=== PATIENT | male | born 1950 | race Caucasian/White ===

== ENCOUNTER 2019-02-21 13:59 | Emergency (ER) | payer OTHER ==
[2019-02-21 14:29] VITALS: BP 147/85
--- NOTE | 2019-02-21 15:17 | EDM.PDOC ---
ED HPI GENERAL MEDICAL PROBLEM - General Chief Complaint: Neurological Problem Stated Complaint: DIZZY X 2 DAYS Time Seen by Provider: 02/21/19 14:20 Source of Information: Reports: Patient History Limitations: Reports: No Limitations - History of Present Illness INITIAL COMMENTS - FREE TEXT/NARRATIVE: 68 y/o male presents to ER with cc dizziness. He states he started feeling dizzy 2 weeks ago. Over the past 2 days his symptoms are worse. He states he feels off balance. It is worse when he moves his head. He denies neck pain, headache, chills, fever, nausea or vomiting. He states when he walks he feels wobbly. He reports he wears bilateral hearing aids and has problems with his right ear consistently draining. He reports having ear surgery 10 years ago. Onset Date: 02/19/19 Onset Time: 09:00 Duration: Intermittent, Waxing/Waning Location: Reports: Generalized. Denies: Radiates to Severity: Mild Improves with: Reports: None Worsens with: Reports: Movement Associated Symptoms: Reports: Other (dizziness). Denies: Fever/Chills, Headaches, Nausea/Vomiting Headache Pain Score (Numeric/FACES): 3 - Related Data Allergies Allergy/AdvReac Type Severity Reaction Status Date / Time codeine Allergy Itching Verified 02/21/19 14:25 Home Meds: Home Meds Levothyroxine [Synthroid] 0 mcg PO DAILY 10/10/15 [History] PARoxetine [Paxil] 40 mg PO DAILY 10/10/15 [History] lamoTRIgine [Lamotrigine] 200 mg PO DAILY 10/10/15 [History] levETIRAcetam [Levetiracetam] 500 mg PO DAILY 10/10/15 [History] traZODone 150 mg PO BEDTIME 10/10/15 [History] Past Medical History HEENT History: Reports: Hard of Hearing Other Musculoskeletal History: herniated disc Neurological History: Reports: Headaches, Chronic, Seizure Psychiatric History: Reports: Anxiety, Depression, PTSD Endocrine/Metabolic History: Reports: Hypothyroidism - Past Surgical History HEENT Surgical History: Reports: Myringotomy w Tube(s), Other (See Below) Other HEENT Surgeries/Procedures: ear surgeries Musculoskeletal Surgical History: Reports: Arthroscopic Procedure Social & Family History - Tobacco Use Smoking Status *Q: Current Every Day Smoker Years of Tobacco use: 53 Packs/Tins Daily: 1 - Caffeine Use Caffeine Use: Reports: Coffee - Recreational Drug Use Recreational Drug Use: No - Living Situation & Occupation Living situation: Reports: Occupation: Unemployed ED ROS GENERAL - Review of Systems Review Of Systems: See Below Constitutional: Denies: Fever, Chills HEENT: Reports: Ear Discharge (right ear, bilateral hearing aids), Hearing Loss , Vertigo. Denies: Ear Pain Respiratory: Denies: Shortness of Breath Cardiovascular: Denies: Chest Pain Endocrine: Reports: No Symptoms, Polyuria : Reports: No Symptoms Musculoskeletal: Reports: No Symptoms Skin: Reports: No Symptoms Neurological: Reports: Dizziness Psychiatric: Reports: No Symptoms Hematologic/Lymphatic: Reports: No Symptoms Immunologic: Reports: No Symptoms ED EXAM, NEURO - Physical Exam Exam: See Below Exam Limited By: No Limitations General Appearance: Alert, WD/WN, No Apparent Distress Ears: Normal External Exam (right ear was impacted with 3 inch piece of paper towel, a end of a q tip and a 1.5 cm x 1.5 cm crusty brown matter, TM intact.), Normal TMs, Hearing Loss Throat/Mouth: Normal Inspection Head Exam: Atraumatic, Normocephalic Neck: Normal Inspection, Supple, Non-Tender Respiratory/Chest: No Respiratory Distress, Lungs Clear, Normal Breath Sounds, No Accessory Muscle Use, Chest Non-Tender Cardiovascular: Normal Peripheral Pulses, Regular Rate, Rhythm, No Edema, No Gallop, No JVD, No Murmur, No Rub Neurological: Alert, Normal Mood/Affect, Normal Dorsiflexion, CN II-XII Intact, Normal Plantar Flexion, Normal Gait, Normal Reflexes, No Motor/Sensory Deficits , Oriented x 3 Extremities: Normal Inspection, Normal Range of Motion, Non-Tender, No Pedal Edema, Normal Capillary Refill Psychiatric: Normal Affect, Normal Mood Skin Exam: Warm, Dry, Intact, Normal Color, No Rash Course - Vital Signs Last Recorded V/S: Last Vital Signs Temp 98.2 F 02/21/19 14:23 Pulse 64 02/21/19 14:23 Resp 16 02/21/19 14:23 BP 147/85 H 02/21/19 14:23 Pulse Ox 98 02/21/19 14:23 - Re-Assessments/Exams Free Text/Narrative Re-Assessment/Exam: 02/21/19 15:20 68 y/o male presented to ER with cc dizziness for the past 2 weeks and worse the past 2 days. His examination revealed multiple foreign bodies in right ear, including paper towel and end of a q-tip. I did remove this debris and moderate crusty mater. He immediately felt relief and his dizziness resolved almost completely. He is ambulating with steady gait. He states he feels better and is ready to go home. I don't feel he needs further work up at this time. I will discharge home with instructions to follow up with his PCP. Instructed to return to the ER for any new or acute worsening symptoms. Patient verbalized understanding and is comfortable with plan for discharge. He is stable at time of discharge. Departure - Departure Time of Disposition: 15:23 Disposition: Home, Self-Care 01 Condition: Good Clinical Impression: Dizziness, Ear build-up - Discharge Information Instructions: Earwax Buildup, Adult, Vertigo, [id number], Dizziness, Easy-to- Read Referrals: Brianna Granados MD [Primary Care Provider] - Additional Instructions: Your have been diagnosis with dizziness. I feel this may be due to the debris that was impacted in your right ear. I recommend you follow up with your PCP. Do not pack ear or use q-tips. Return to the ER for any new or acute worsening symptoms.
== END 2019-02-21 15:38 | disposition home or self-care (01) ==
LOC: JD.ED 13:59
DX: R42 Dizziness and giddiness (principal); F17.210 Nicotine dependence, cigarettes, uncomplicated; Z88.5 Allergy status to narcotic agent; Z79.899 Other long term (current) drug therapy
CPT/HCPCS: 99282; 99283

== ENCOUNTER 2019-02-23 15:08 | Emergency (ER) | payer OTHER ==
[2019-02-23 15:26] VITALS: BP 123/77
[2019-02-23] MEDS ORDERED: Meclizine 12.5 MG Tab PO ONE ×2 (16:46→17:46)
--- NOTE | 2019-02-23 17:00 | EDM.PDOC ---
ED HPI GENERAL MEDICAL PROBLEM - General Chief Complaint: ENT Problem Stated Complaint: STILL DIZZY AND HEARING LOSS IN RT EAR Time Seen by Provider: 02/23/19 16:13 Source of Information: Reports: Patient, RN Notes Reviewed History Limitations: Reports: No Limitations - History of Present Illness INITIAL COMMENTS - FREE TEXT/NARRATIVE: Patient is a 68-year-old male who presents to the ED for the evaluation of increasing dizziness and right sided hearing loss. He states that he has a history of hearing loss with hearing aids, however this has worsened. He states he cannot hear out of the right side at all. He was seen here on February 21 and did have his ear cleaned out at that time he was found to have a bit of a Q-tip, some paper towel and other cerumen like impaction. The patient states that he does have chronic problems with his right ear where it drains normally. He does note a previous ENT surgery to his right ear many years ago, he states at this time the ENT told him he should have his ear cleaned out at least every 6 months. He is not having any pain in his ear or into his forehead or into the back of his head at all. He states he is mainly dizzy, and feels as if he can't get his balance. He states that he cannot walk straight and he walks like a "drunken soldier". He does not relate this to be positional however he states when he went to take his pants off last night he went head over tea kettle into the coffee table. He further denies any headache at this time, he states he had a very mild headache after he had his ear cleaned out to begin with but this has since resolved. - Related Data Allergies Allergy/AdvReac Type Severity Reaction Status Date / Time codeine Allergy Itching Verified 02/23/19 15:26 Home Meds: Home Meds Levothyroxine [Synthroid] 0 mcg PO DAILY 10/10/15 [History] PARoxetine [Paxil] 40 mg PO DAILY 10/10/15 [History] lamoTRIgine [Lamotrigine] 200 mg PO DAILY 10/10/15 [History] levETIRAcetam [Levetiracetam] 500 mg PO DAILY 10/10/15 [History] traZODone 150 mg PO BEDTIME 10/10/15 [History] Amoxicillin/Potassium Clav [Augmentin 500-125 Tablet] 1 each PO BID #16 tablet 02/23/19 [Rx] Hydrocort/Neomycin/Polymyxin B [Cmejatyq-Ukyynrbkb-NZ Otic Susp] 10 ml EARRT QID #1 bottle 02/23/19 [Rx] Meclizine [Antivert] 25 mg PO TID #15 tab 02/23/19 [Rx] Past Medical History HEENT History: Reports: Hard of Hearing Other Musculoskeletal History: herniated disc Neurological History: Reports: Headaches, Chronic, Seizure Psychiatric History: Reports: Anxiety, Depression, PTSD Endocrine/Metabolic History: Reports: Hypothyroidism - Past Surgical History HEENT Surgical History: Reports: Myringotomy w Tube(s), Other (See Below) Other HEENT Surgeries/Procedures: ear surgeries Musculoskeletal Surgical History: Reports: Arthroscopic Procedure Social & Family History - Tobacco Use Smoking Status *Q: Current Every Day Smoker Years of Tobacco use: 52 Packs/Tins Daily: 1 - Caffeine Use Caffeine Use: Reports: Coffee, Soda - Recreational Drug Use Recreational Drug Use: Yes Drug Use in Last 12 Months: Yes Recreational Drug Type: Reports: Marijuana/Hashish Recreational Drug Use Frequency: Socially - Living Situation & Occupation Living situation: Reports: Occupation: Unemployed ED ROS GENERAL - Review of Systems Review Of Systems: See Below Constitutional: Denies: Fever, Chills HEENT: Reports: Ear Discharge (Right sided), Hearing Loss (Rigth sided), Vertigo. Denies: Eye Pain, Vision Change Respiratory: Reports: No Symptoms Cardiovascular: Reports: No Symptoms Endocrine: Reports: No Symptoms GI/Abdominal: Reports: No Symptoms : Reports: No Symptoms Musculoskeletal: Reports: No Symptoms Skin: Reports: No Symptoms Neurological: Reports: Dizziness, Difficulty Walking. Denies: Confusion, Headache, Numbness, Syncope, Tingling Psychiatric: Reports: No Symptoms Hematologic/Lymphatic: Reports: No Symptoms Immunologic: Reports: No Symptoms ED EXAM, DIZZINESS - Physical Exam Exam: See Below Exam Limited By: No Limitations General Appearance: Alert, WD/WN, No Apparent Distress Eye Exam: Left Eye: Nystagmus (3 tics of bilateral nystagmus), Bilateral Eye: EOMI, Normal Inspection, PERRL Ears: Canal Discharge (right sided, scant amount of blood mixed with whitish discharge noted to 5 o-clock position of EAC, There was some dark brown cerumen impaction at roughly 9 o-clock of EAC, this did obscure my view of the TM ), TM Obscured by Cerumen (Right sided) Nose: Normal Inspection Throat/Mouth: Normal Inspection, No Airway Compromise Head Exam: Atraumatic, Normocephalic Neck: Normal Inspection, Supple, Non-Tender, Full Range of Motion Respiratory/Chest: No Respiratory Distress, Lungs Clear, Normal Breath Sounds, No Accessory Muscle Use, Chest Non-Tender Cardiovascular: Normal Peripheral Pulses, Regular Rate, Rhythm, No Murmur Neurological: Alert, Normal Mood/Affect, Normal Dorsiflexion, Normal Plantar Flexion, Normal Reflexes, No Motor/Sensory Deficits, Oriented x 3, Difficulty Walking (heel to toe gait is impaired and he could only make it 1.5 steps without being completely off balance.), Other (he does have marked hearing loss on the right side, he states this is worse than normal for him.). No: Abnormal Finger to Nose (finger to nose was normal) Extremities: Normal Inspection, Normal Capillary Refill Psychiatric: Normal Affect, Normal Mood Skin Exam: Warm, Dry, Intact, Normal Color, No Rash Course - Vital Signs Last Recorded V/S: Last Vital Signs Temp 98.4 F 02/23/19 15:20 Pulse 70 02/23/19 15:20 Resp 18 02/23/19 15:20 BP 123/77 02/23/19 15:20 Pulse Ox 98 02/23/19 15:20 - Orders/Labs/Meds Meds: Medications Discontinued Medications Generic Name Dose Route Start Last Admin Trade Name Freq PRN Reason Stop Dose Admin Meclizine HCl 12.5 mg 02/23/19 16:46 02/23/19 16:52 Antivert PO 02/23/19 16:47 12.5 mg ONETIME ONE Administration - Re-Assessments/Exams Free Text/Narrative Re-Assessment/Exam: 02/23/19 17:03 Patient presents to the ED for the evaluation of right-sided hearing loss and dizziness. He did have his ear cleaned out and this did produce multiple foreign bodies on 21 February, he did initially feel better but today he has had increased hearing loss and increased dizziness. He does seem to elicit some vertigo-like symptoms at this time. I did order 12.5 mg of meclizine to be given in the ED, I will recommend that he takes meclizine 3 times daily for the next few days, I will provide a prescription for Augmentin in the chance that he may have a inner ear infection from the cleaning of the impaction. I will also provide some antibiotic eardrops to clean up his ear canal at this time. He needs to have a follow up with an industrial psychology professor as well. Departure - Departure Time of Disposition: 17:51 Disposition: Home, Self-Care 01 Condition: Fair Clinical Impression: Dizziness Otitis externa Qualifiers: Otitis externa type: unspecified type Chronicity: acute Laterality: right Qualified Code(s): H60.501 - Unspecified acute noninfective otitis externa, right ear - Discharge Information *PRESCRIPTION DRUG MONITORING PROGRAM REVIEWED*: No *COPY OF PRESCRIPTION DRUG MONITORING REPORT IN PATIENT ESTELITA: No Prescriptions: Amoxicillin/Potassium Clav [Augmentin 500-125 Tablet] 1 each PO BID #16 tablet Hydrocort/Neomycin/Polymyxin B [Skomvnan-Nihqdgenc-TC Otic Susp] 10 ml EARRT QID #1 bottle Instructions: Ear Drops, Adult, Ukry-ng-Hnpt, Vertigo, [id number] Referrals: Brianna Granados MD [Primary Care Provider] - Forms: ED Department Discharge Additional Instructions: You have been evaluated in the ED today for your right sided hearing loss and dizziness. Recommend that you have a follow-up with an industrial psychology professor to further delineate where the hearing loss is coming from. You have been prescribed an antibiotic, Augmentin, please take one tab 2 times daily for 8 days. Please use the eardrops, 2 drops in the right ear canal 4 times daily for 5 days. Please take the [id number] medication meclizine, it may also marketed as Bonine, 25 mg every 8 hours for the next 5 days dizziness symptoms, and then you may take the meclizine as needed for further dizziness like symptoms. These medications have been electronically prescribed to the [facility] located [facility] [employer] [facility]. The Augmentin can provide diarrhea-like symptoms, recommend that you take a probiotic when taking this medicine. Please return to the ED if her symptoms change or worsen.
== END 2019-02-23 18:01 | disposition home or self-care (01) ==
LOC: JD.ED 15:08
DX: R42 Dizziness and giddiness (principal); H60.501 Unspecified acute noninfective otitis externa, right ear; E03.9 Hypothyroidism, unspecified; F17.210 Nicotine dependence, cigarettes, uncomplicated; Z88.5 Allergy status to narcotic agent
CPT/HCPCS: 99283; A9270

== ENCOUNTER 2019-08-20 13:41 | Emergency (ER) | payer OTHER ==
[2019-08-20 13:51] VITALS: BP 181/107; PULSE 67
[2019-08-20] MEDS ORDERED: Sodium Chloride 0.9% 10 ML Syringe FLUSH PRN ×2 (14:04→14:13)
[2019-08-20] MEDS ORDERED: Ondansetron 4 MG/2 ML SDV IVPUSH ONE (14:04)
[2019-08-20] MEDS ORDERED: Iopamidol 755 Mg/ML 100 ML Bottle IVPUSH ONE (14:13)
[2019-08-20] MEDS ORDERED: Sodium Chloride 0.9% 1,000 ML IV SCH (14:15)
[2019-08-20] MEDS ORDERED: Sodium Chloride 0.9% 100 ML IV SCH (14:15)
--- NOTE | 2019-08-20 14:59 | EDM.PDOC ---
ED HPI GENERAL MEDICAL PROBLEM - General Chief Complaint: Neuro Symptoms/Deficits Stated Complaint: DIZZINESS Time Seen by Provider: 08/20/19 13:53 Source of Information: Reports: Patient History Limitations: Reports: No Limitations - History of Present Illness INITIAL COMMENTS - FREE TEXT/NARRATIVE: The patient presents with dizziness. This started this morning when he woke up. He is off balance. He says he has no headache, ear pain or ringing in the ears. He does have a hearing aid in the right ear and a metal plate behind the ear for another hearing aid that he does not use any more. He has no nausea, vomiting, fever, chills, cough, chest pain, shortness of breath, abdominal pain , numbness or weakness. He had something similar to this happen earlier in the year but it is much worse today. Onset: Gradual Duration: Hour(s): Severity: Moderate Improves with: Reports: Immobilization Worsens with: Reports: Movement Associated Symptoms: Reports: No Other Symptoms - Related Data Allergies Allergy/AdvReac Type Severity Reaction Status Date / Time codeine Allergy Itching Verified 08/20/19 13:51 Home Meds: Home Meds Levothyroxine [Synthroid] 0 mcg PO DAILY 10/10/15 [History] PARoxetine [Paxil] 40 mg PO DAILY 10/10/15 [History] lamoTRIgine [Lamotrigine] 200 mg PO BID 10/10/15 [History] levETIRAcetam [Levetiracetam] 500 mg PO BID 10/10/15 [History] traZODone 100 mg PO BEDTIME 10/10/15 [History] Prazosin [Minpress] 1 mg PO BEDTIME 08/20/19 [History] Past Medical History HEENT History: Reports: Hard of Hearing Cardiovascular History: Reports: None Respiratory History: Reports: None Gastrointestinal History: Reports: None Genitourinary History: Reports: None Other Musculoskeletal History: herniated disc Neurological History: Reports: Headaches, Chronic, Seizure Psychiatric History: Reports: Anxiety, Depression, PTSD Endocrine/Metabolic History: Reports: Hypothyroidism Hematologic History: Reports: None Immunologic History: Reports: None Oncologic (Cancer) History: Reports: None Dermatologic History: Reports: None - Infectious Disease History Infectious Disease History: Reports: None - Past Surgical History HEENT Surgical History: Reports: Myringotomy w Tube(s), Other (See Below) Other HEENT Surgeries/Procedures: ear surgeries Musculoskeletal Surgical History: Reports: Arthroscopic Procedure Social & Family History - Tobacco Use Smoking Status *Q: Current Every Day Smoker Years of Tobacco use: 50 Packs/Tins Daily: 1.5 - Caffeine Use Caffeine Use: Reports: Coffee, Soda - Recreational Drug Use Recreational Drug Use: No - Living Situation & Occupation Living situation: Reports: Occupation: Unemployed ED ROS GENERAL - Review of Systems Review Of Systems: See Below Constitutional: Reports: No Symptoms HEENT: Reports: Vertigo. Denies: Ear Pain Respiratory: Reports: No Symptoms Cardiovascular: Reports: No Symptoms Endocrine: Reports: No Symptoms GI/Abdominal: Reports: No Symptoms : Reports: No Symptoms Musculoskeletal: Reports: No Symptoms Neurological: Reports: Dizziness ED EXAM, NEURO - Physical Exam Exam: See Below Exam Limited By: No Limitations General Appearance: Alert, No Apparent Distress Eye Exam: Right Eye: Nystagmus Ears: Normal External Exam Nose: Normal Inspection Head Exam: Atraumatic, Normocephalic Neck: Normal Inspection, Supple, Non-Tender Respiratory/Chest: No Respiratory Distress, Lungs Clear, Normal Breath Sounds Cardiovascular: Regular Rate, Rhythm, No Edema, No Murmur GI/Abdominal: Soft, Non-Tender, No Organomegaly, No Mass Neurological: Alert, No Motor/Sensory Deficits, Oriented x 3 EKG INTERPRETATION EKG Date: 08/20/19 Time: 14:27 Rhythm: NSR Rate (Beats/Min): 65 Blackwell: Normal P-Wave: Present QRS: Normal ST-T: Normal QT: Normal Course - Vital Signs Last Recorded V/S: Last Vital Signs Temp 97.3 F 08/20/19 13:48 Pulse 67 08/20/19 13:48 Resp 16 08/20/19 13:48 BP 181/107 H 08/20/19 13:48 Pulse Ox 99 08/20/19 13:48 - Orders/Labs/Meds Orders: Active Orders 24 hr Category Date Time Status Cardiac Monitoring [RC] . DIRECTED Care 08/20/19 14:04 Active EKG Documentation Completion [RC] STAT Care 08/20/19 14:05 Active Peripheral IV Care [RC] . DIRECTED Care 08/20/19 14:05 Active Sodium Chloride 0.9% [Normal Saline] 1,000 ml Med 08/20/19 14:15 Active IV ASDIRECTED Sodium Chloride 0.9% [Normal Saline] 100 ml Med 08/20/19 14:15 Active IV ASDIRECTED Sodium Chloride 0.9% [Saline Flush] Med 08/20/19 14:04 Active 10 ml FLUSH ASDIRECTED PRN Sodium Chloride 0.9% [Saline Flush] Med 08/20/19 14:13 Active 10 ml FLUSH ONETIME PRN ED Antiemetic Medication Reflex [OM.PC] Stat Ot 08/20/19 14:04 Ordered Peripheral IV Insertion Adult [OM.PC] Stat Ot 08/20/19 14:04 Ordered Medication Orders Sodium Chloride (Normal Saline) 1,000 mls @ 125 mls/hr IV ASDIRECTED ANNA Last Admin: 08/20/19 14:20 Dose: 125 mls/hr Sodium Chloride (Normal Saline) 100 mls @ 75 mls/hr IV ASDIRECTED ANNA Last Admin: 08/20/19 15:29 Dose: 75 mls/hr Sodium Chloride (Saline Flush) 10 ml FLUSH ASDIRECTED PRN PRN Reason: Keep Vein Open Last Admin: 08/20/19 14:21 Dose: 10 ml Sodium Chloride (Saline Flush) 10 ml FLUSH ONETIME PRN PRN Reason: IV FLUSH Last Admin: 08/20/19 15:29 Dose: 10 ml Labs: Laboratory Tests 08/20/19 08/20/19 Range/Units 14:20 14:20 WBC 7.99 (4.23-9.07) K/mm3 RBC 4.19 L (4.63-6.08) M/mm3 Hgb 14.0 (13.7-17.5) gm/dl Hct 40.1 (40.1-51.0) % MCV 95.7 H (79.0-92.2) fl MCH 33.4 H (25.7-32.2) pg MCHC 34.9 (32.2-35.5) g/dl RDW Std Deviation 46.6 H (35.1-43.9) fL Plt Count 208 (163-337) K/mm3 MPV 9.6 (9.4-12.3) fl Neut % (Auto) 83.5 H (34.0-67.9) % Lymph % (Auto) 9.3 L (21.8-53.1) % Twiggs % (Auto) 6.8 (5.3-12.2) % Eos % (Auto) 0.1 L (0.8-7.0) Baso % (Auto) 0.3 (0.1-1.2) % Neut # (Auto) 6.68 H (1.78-5.38) K/mm3 Lymph # (Auto) 0.74 L (1.32-3.57) K/mm3 Twiggs # (Auto) 0.54 (0.30-0.82) K/mm3 Eos # (Auto) 0.01 L (0.04-0.54) K/mm3 Baso # (Auto) 0.02 (0.01-0.08) K/mm3 Manual Slide Review Abnormal smear Sodium 137 (136-145) mEq/L Potassium 4.0 (3.5-5.1) mEq/L Chloride 102 (98-107) mEq/L Carbon Dioxide 27 (21-32) mEq/L Anion Gap 12.0 (5-15) BUN 13 (7-18) mg/dL Creatinine 1.1 (0.7-1.3) mg/dL Est Cr Clr Drug Dosing 65.44 mL/min Estimated GFR (MDRD) > 60 (>60) mL/min BUN/Creatinine Ratio 11.8 L (14-18) Glucose 137 H (80-115) mg/dL Calcium 9.1 (8.5-10.1) mg/dL Total Bilirubin 0.5 (0.2-1.0) mg/dL AST 14 L (15-37) U/L ALT 16 (16-63) U/L Alkaline Phosphatase 73 (46-116) U/L Troponin I < 0.017 (0.00-0.056) ng/mL Total Protein 7.0 (6.4-8.2) g/dl Albumin 3.7 (3.4-5.0) g/dl Globulin 3.3 gm/dL Albumin/Globulin Ratio 1.1 (1-2) Meds: Medications Generic Name Dose Route Start Last Admin Trade Name Freq PRN Reason Stop Dose Admin Sodium Chloride 1,000 mls @ 125 mls/hr 08/20/19 14:15 08/20/19 14:20 Normal Saline IV 125 mls/hr ASDIRECTED ANNA Administration Sodium Chloride 100 mls @ 75 mls/hr 08/20/19 14:15 08/20/19 15:29 Normal Saline IV 75 mls/hr ASDIRECTED ANNA Administration Sodium Chloride 10 ml 08/20/19 14:04 08/20/19 14:21 Saline Flush FLUSH 10 ml ASDIRECTED PRN Administration Keep Vein Open Sodium Chloride 10 ml 08/20/19 14:13 08/20/19 15:29 Saline Flush FLUSH 10 ml ONETIME PRN Administration IV FLUSH Discontinued Medications Generic Name Dose Route Start Last Admin Trade Name Willy PRN Reason Stop Dose Admin Iopamidol 100 ml 08/20/19 14:13 08/20/19 15:29 Isovue-370 (76%) IVPUSH 08/20/19 14:14 100 ml ONETIME ONE Administration Meclizine HCl 25 mg 08/20/19 14:06 08/20/19 14:21 Antivert PO 08/20/19 14:07 25 mg ONETIME ONE Administration Ondansetron HCl 4 mg 08/20/19 14:04 08/20/19 14:21 Zofran IVPUSH 08/20/19 14:05 4 mg ONETIME ONE Administration - Re-Assessments/Exams Free Text/Narrative Re-Assessment/Exam: 08/20/19 16:47 I ordered an IV NS at 125mL/hr, zofran 4mg IV, antivert 25mg by mouth, labs, EKG and a CT of his head and a CT angio. 08/20/19 16:48 His CBC and CMP look good. His troponin is negative. His EKG shows a NSR with no acute changes. 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 Mild generalized atrophy. Significant artifact as noted above. No acute intracranial abnormality is definitely appreciated. The CT angio of his head shows significant artifact from implantable device within the right skull. Within the limitations caused by the artifact, no definite abnormality is seen on CT angiogram study of the brain. He feels better. I will have him take antivert. Departure - Departure Time of Disposition: 16:55 Disposition: Home, Self-Care 01 Condition: Good Clinical Impression: Vertigo - Discharge Information *PRESCRIPTION DRUG MONITORING PROGRAM REVIEWED*: No *COPY OF PRESCRIPTION DRUG MONITORING REPORT IN PATIENT ESTELITA: No Referrals: Brianna Granados MD [Primary Care Provider] - Forms: ED Department Discharge Additional Instructions: Take antivert 25mg every 6 hours as needed for dizziness. Drink plenty of fluids. Please return if you are worse. - My Orders Last 24 Hours: My Active Orders 08/20/19 14:04 Cardiac Monitoring [RC] . DIRECTED Sodium Chloride 0.9% [Saline Flush] 10 ml FLUSH ASDIRECTED PRN ED Antiemetic Medication Reflex [OM.PC] Stat Peripheral IV Insertion Adult [OM.PC] Stat 08/20/19 14:05 EKG Documentation Completion [RC] STAT Peripheral IV Care [RC] . DIRECTED 08/20/19 14:13 Sodium Chloride 0.9% [Saline Flush] 10 ml FLUSH ONETIME PRN 08/20/19 14:15 Sodium Chloride 0.9% [Normal Saline] 1,000 ml IV ASDIRECTED Sodium Chloride 0.9% [Normal Saline] 100 ml IV ASDIRECTED - Assessment/Plan Last 24 Hours: My Active Orders 08/20/19 14:04 Cardiac Monitoring [RC] . DIRECTED Sodium Chloride 0.9% [Saline Flush] 10 ml FLUSH ASDIRECTED PRN ED Antiemetic Medication Reflex [OM.PC] Stat Peripheral IV Insertion Adult [OM.PC] Stat 08/20/19 14:05 EKG Documentation Completion [RC] STAT Peripheral IV Care [RC] . DIRECTED 08/20/19 14:13 Sodium Chloride 0.9% [Saline Flush] 10 ml FLUSH ONETIME PRN 08/20/19 14:15 Sodium Chloride 0.9% [Normal Saline] 1,000 ml IV ASDIRECTED Sodium Chloride 0.9% [Normal Saline] 100 ml IV ASDIRECTED
--- NOTE | 2019-08-20 15:26 | CT ---
Head CT Technique: Multiple axial sections through the brain were obtained. Intravenous contrast was not utilized. Comparison: No prior intracranial imaging. Implantable skull device is noted on the right side causing significant artifact. Findings: Ventricles along with basal cisterns and sulci over the convexities are mildly prominent. Atrophy is noted within the right temporal lobe presumably from old infarct. No other abnormal parenchymal densities are seen. No evidence of intracranial hemorrhage. No midline shift or mass effect is seen. Impression: 1. 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 2. Mild generalized atrophy. 3. Significant artifact as noted above. 4. No acute intracranial abnormality is definitely appreciated. Diagnostic code #3
--- NOTE | 2019-08-20 16:02 | CT ---
CT angiogram of brain Technique: Multiple axial sections through the brain were obtained. Intravenous contrast was utilized. Study performed as a CT angiogram protocol. Findings: Artifact is noted from the patient's implantable skull device causing significant diminished evaluation. Proximal middle cerebral arteries are patent. Proximal anterior cerebral arteries are patent. Proximal posterior cerebral arteries are patent. Basilar artery and both distal vertebral arteries are patent. Carotid siphon is not adequately seen but more proximal internal carotid arteries are patent. Impression: 1. Significant artifact from implantable device within the right skull. 2. Within the limitations caused by the artifact, no definite abnormality is seen on CT angiogram study of the brain. Diagnostic code #2
== END 2019-08-20 17:05 | disposition home or self-care (01) ==
LOC: JD.ED 13:41
DX: R42 Dizziness and giddiness (principal); Z88.5 Allergy status to narcotic agent; Z79.899 Other long term (current) drug therapy
CPT/HCPCS: 36415; 70450; 70496; 80053; 84484; 85025; 93005; 96361; 96374; 99284; A9270; J2405; J7030; J7040; Q9967

== ENCOUNTER 2020-01-14 21:38 | Emergency (ER) | payer OTHER ==
[2020-01-14 21:49] VITALS: BP 126/78; PULSE 69
[2020-01-14] MEDS ORDERED: Diphtheria,Pertussis(Acell),Tetanus Vaccine 0.5 ML Syringe IM ONE (21:53)
--- NOTE | 2020-01-14 21:54 | EDM.PDOC ---
ED HPI GENERAL MEDICAL PROBLEM - General Chief Complaint: Head Injury Stated Complaint: [facility] Time Seen by Provider: 01/14/20 21:49 Source of Information: Reports: Patient History Limitations: Reports: No Limitations - History of Present Illness INITIAL COMMENTS - FREE TEXT/NARRATIVE: 69-year-old male presents to the ED per [facility] after slipping and fall outside 1 of the local bars when he went out to have a cigarette. Slipped on the ice and fell directly backwards hitting his head on concrete and ice. There was no loss of consciousness. He states he got back up and walked right back into the bar. He was bleeding quite badly from his occipital head and therefore paramedics were summoned. Patient at this time denies any pain in his neck and no pain in his ribs back , neck, wrists forearms or elbows. He can walk without any problem. He has a bandage around his head covering his laceration occipital scalp. Denies even a headache at this time. He cannot remember when he had his last tetanus shot. Onset: Today Onset Date: 01/14/20 Onset Time: 21:20 Duration: Minutes: Location: Reports: Head (Occipital scalp) Quality: Reports: Ache, Burning Severity: Mild Improves with: Reports: None Worsens with: Reports: None Context: Reports: Trauma (And fell on the ice outside of 1 of the local drinking establishments while he went out for a smoke. Fell directly onto the back of his head with no loss of consciousness. Got right back up and walked into the bar.). 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.) Left Head Pain Score (Numeric/FACES): 2 - Related Data Allergies Allergy/AdvReac Type Severity Reaction Status Date / Time codeine Allergy Itching Verified 08/20/19 13:51 Home Meds: Home Meds Levothyroxine [Synthroid] 0 mcg PO DAILY 10/10/15 [History] PARoxetine [Paxil] 40 mg PO DAILY 10/10/15 [History] lamoTRIgine [Lamotrigine] 200 mg PO BID 10/10/15 [History] levETIRAcetam [Levetiracetam] 500 mg PO BID 10/10/15 [History] traZODone 100 mg PO BEDTIME 10/10/15 [History] Prazosin [Minpress] 1 mg PO BEDTIME 08/20/19 [History] Past Medical History HEENT History: Reports: Hard of Hearing Cardiovascular History: Reports: None Respiratory History: Reports: None Gastrointestinal History: Reports: None Genitourinary History: Reports: None Other Musculoskeletal History: herniated disc Neurological History: Reports: Headaches, Chronic, Seizure Psychiatric History: Reports: Anxiety, Bipolar, Depression, PTSD Endocrine/Metabolic History: Reports: Hypothyroidism Hematologic History: Reports: None Immunologic History: Reports: None Oncologic (Cancer) History: Reports: None Dermatologic History: Reports: None - Infectious Disease History Infectious Disease History: Reports: None - Past Surgical History HEENT Surgical History: Reports: Myringotomy w Tube(s), Other (See Below) Other HEENT Surgeries/Procedures: ear surgeries Musculoskeletal Surgical History: Reports: Arthroscopic Procedure Social & Family History - Caffeine Use Caffeine Use: Reports: Coffee, Soda - Alcohol Use Alcohol Use History: Yes Days Per Week of Alcohol Use: 2 - Living Situation & Occupation Living situation: Reports: Occupation: Unemployed ED ROS GENERAL - Review of Systems Review Of Systems: See Below Constitutional: Reports: No Symptoms HEENT: Reports: Glasses Respiratory: Reports: No Symptoms. Denies: Shortness of Breath, Wheezing, Pleuritic Chest Pain Cardiovascular: Reports: Blood Pressure Problem Endocrine: Reports: No Symptoms GI/Abdominal: Reports: No Symptoms : Reports: Frequency, Other Musculoskeletal: Reports: Back Pain (Chair usually x2.), Joint Pain (Times pain in his knees hips and neck.) Skin: Reports: No Symptoms Neurological: Reports: No Symptoms Psychiatric: Reports: No Symptoms Hematologic/Lymphatic: Reports: No Symptoms Immunologic: Reports: No Symptoms ED EXAM, HEAD INJURY - Physical Exam Exam: See Below Exam Limited By: No Limitations General Appearance: Alert, WD/WN, No Apparent Distress, Other (She is under the influence of alcohol but interacts normally.) Head: Other (She has a 7 cm hematoma to the midline and left occipital scalp. There is an area of denuded skin measuring approximately 4 cm x 1.5 cm where it has been abraded. Does not look like there is any lacerations that will require repair.) Nexus Criteria: Evidence of Intoxication. No: Posterior, Midline Cervical Tenderness, Altered Level of Consciousness, Focal Neurological Deficit, Painful Distraction Injuries Eyes: Bilateral Eye: Normal Inspection, Nystagmus Ears: Normal TMs (Blood behind the tympanic membranes.) Throat/Mouth: Other Neck: Non-Tender (No dental or tongue injuries.), Full Range of Motion, Normal Alignment, Normal Inspection, Other (Pain to palpation.) Respiratory: No Respiratory Distress, Lungs Clear, Normal Breath Sounds, No Accessory Muscle Use, Chest Non-Tender Cardiovascular: Normal Peripheral Pulses, Regular Rate, Rhythm, No Edema, No Gallop, No Murmur, No Rub GI/Abdominal Exam: Normal Bowel Sounds, Soft, Non-Tender, No Organomegaly, No Distention, No Abnormal Bruit Extremities: Normal Inspection, Normal Range of Motion, Non-Tender, No Pedal Edema 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 As Tested, No Motor/Sensory Deficits, Alert, Normal Mood/Affect, Oriented x 3 Skin: Normal Color, Warm/Dry - Dudley Coma Score Best Eye Response (Nona): (4) Open Spontaneously Best Verbal Response (Dudley): (5) Oriented Best Motor Response (Dudley): (6) Obeys Commands Course - Vital Signs Last Recorded V/S: Last Vital Signs Temp 36.4 C 01/14/20 21:41 Pulse 69 01/14/20 21:41 Resp 18 01/14/20 21:41 BP 126/78 01/14/20 21:41 Pulse Ox 97 01/14/20 21:41 - Orders/Labs/Meds Orders: Active Orders 24 hr Category Date Time Status Vaccines to be Administered [RC] PER UNIT ROUTINE Care 01/14/20 21:53 Active Head wo Cont [CT] Stat Exams 01/14/20 21:49 Taken Meds: Medications Discontinued Medications Generic Name Dose Route Start Last Admin Trade Name Freq PRN Reason Stop Dose Admin Diphtheria/Tetanus/Acell Pertussis 0.5 ml 01/14/20 21:53 01/14/20 23:42 Adacel IM 01/14/20 21:54 0.5 ml .ONCE ONE Administration Lidocaine HCl 10 ml 01/14/20 22:34 01/14/20 23:42 Xylocaine 1% INJECT 01/14/20 22:35 10 ml ONETIME ONE Administration - Radiology Interpretation Free Text/Narrative:: 69-year-old male presents to the ED after slipping and falling on the ice outside a local bar this evening. He went out for a smoke and lost his balance. He is been mildly intoxicated by alcohol. He states that he got right back up and walked back into the bar after the fall without any loss of consciousness. He continues to bleed from a wound to the occipital scalp. On my inspection appears that you have a denuded area measuring approximately 3 cm x 1.5 cm a deep full-thickness abrasion without any lacerations that would benefit from repair. He cannot remember when his last tetanus shot was in. CT scanning of the head to be done as he does drink alcohol on a daily basis placing him at higher risk for intracerebral hemorrhage. Other injuries were identified on examination. We cleaned up on the back of his head so I make sure there is nothing that requires suture repair. - Re-Assessments/Exams Free Text/Narrative Re-Assessment/Exam: 01/14/20 22:34 the head does not reveal any intracranial fractures. He has a magnetic implant underneath his right parietal scalp that helps hold his hearing aid in place. This causes a lot of x-ray dye fraction across the occipital parietal brain on the right side. Visualized portions of the brain do not show any signs of intracranial hemorrhage. On inspection after the wound was cleansed he has approximately a 2.5 cm stellate laceration with active bleeding and is going to require laceration repair. 01/14/20 23:30: Laceration repaired under local anesthetic times 6 Prolene sutures. They will need to be removed in 10 days time. Patient instructed on how to care for his wound. Notes were given as well for discharge. He will be calling his to come and pick him up as there is no taxi service available at this time. He wishes to come scrap picker his vehicle so that he can take at home. Departure - Departure Time of Disposition: 23:33 Disposition: Home, Self-Care 01 Condition: Fair Clinical Impression: Closed head injury without concussion Qualifiers: Encounter type: initial encounter Qualified Code(s): S09.90XA - Unspecified injury of head, initial encounter Occipital scalp laceration Qualifiers: Encounter type: initial encounter Qualified Code(s): S01.01XA - Laceration without foreign body of scalp, initial encounter - Discharge Information *PRESCRIPTION DRUG MONITORING PROGRAM REVIEWED*: Not Applicable *COPY OF PRESCRIPTION DRUG MONITORING REPORT IN PATIENT ESTELITA: Not Applicable Instructions: Head Injury, Adult, [id number], Stitches, [place], or Adhesive Wound Closure, [id number] Referrals: PCP,Not In Area [Primary Care Provider] - Forms: ED Department Discharge Additional Instructions: AUA sheet in the emergency room tonight in regards to a slip on the ice and fall with blunt trauma to the back of your head. No loss of consciousness occurred according to your history as you are able to get back up and walk back into the local bar where you are at. Persistent bleeding from the scalp the ambulance was called and you were brought to the emergency room for further evaluation. CT scan of the head reveals no cracks in the skull and no intracranial bleeding or mass-effect. Once we cleaned up the back of your head we identified a 2.5 cm laceration across the back of your occipital scalp. This was closed under local anesthetic using 1% lidocaine and 6 sutures were placed to the bleeding. Treatment at home is to daily cleanse area with soap and water. Showering is okay. Then apply a topical layer of antibiotic such as bacitracin or Polysporin to the wound once daily. Sutures will need to be removed in 10 days time usually by your primary care physician or the walk-in clinic at [place]. Sepsis Event Note - Evaluation Sepsis Screening Result: No Definite Risk - Focused Exam Vital Signs: Vital Signs Temp Pulse Resp BP Pulse Ox 01/14/20 21:41 36.4 C 69 18 126/78 97 Date Exam was Performed: 01/15/20 Time Exam was Performed: 03:58 - My Orders Last 24 Hours: My Active Orders 01/14/20 21:49 Head wo Cont [CT] Stat 01/14/20 21:53 Vaccines to be Administered [RC] PER UNIT ROUTINE - Assessment/Plan Last 24 Hours: My Active Orders 01/14/20 21:49 Head wo Cont [CT] Stat 01/14/20 21:53 Vaccines to be Administered [RC] PER UNIT ROUTINE
[2020-01-14] MEDS ORDERED: Lidocaine 1% 10 ML MDV INJECT ONE (22:34)
--- NOTE | 2020-01-15 08:55 | CT ---
Head CT Technique: Multiple axial sections through the brain were obtained. Intravenous contrast was not utilized. Comparison: Prior head CT study of 08/20/19. Findings: Ventricles along with basal cisterns and sulci over the convexities are mildly prominent. Atrophy is again seen within the right temporal lobe. Artifact is noted from metallic skull device within the posterior right parietal bone. Diminished density within the inferior right frontal lobe compatible with an additional area of atrophy. This is better seen on prior study due to lack of artifact in this area. No other abnormal parenchymal densities are appreciated. No evidence of intracranial hemorrhage. No midline shift or mass-effect is seen. Prior right mastoidectomy is noted. No acute calvarial abnormality is appreciated. Impression: 1. Areas of atrophy within the inferior right frontal lobe and right temporal lobe. These findings are stable from prior exam. 2. Artifact as described above. 3. Nothing acute is definitely appreciated on noncontrast head CT exam. Diagnostic code #3 This report was dictated in [place] Standard Time I agree with preliminary report from [facility], finalized on 01/14/20, 11:56 PM Central Time
== END 2020-01-14 23:50 | disposition home or self-care (01) ==
LOC: JD.ED 21:38
DX: S01.01XA Laceration without foreign body of scalp, initial encounter (principal); Z23 Encounter for immunization; F31.9 Bipolar disorder, unspecified; E03.9 Hypothyroidism, unspecified; Z79.899 Other long term (current) drug therapy; Z88.5 Allergy status to narcotic agent; W00.0XXA Fall on same level due to ice and snow, initial encounter
CPT/HCPCS: 12002; 70450; 90471; 90715; 99283; J2001

== ENCOUNTER 2020-03-19 10:09 | Emergency (ER) | payer OTHER ==
--- NOTE | 2020-03-19 11:24 | EDM.PDOC ---
ED HPI GENERAL MEDICAL PROBLEM - General Chief Complaint: Chest Pain Stated Complaint: [facility] Time Seen by Provider: 03/19/20 11:10 Source of Information: Reports: Patient History Limitations: Reports: No Limitations - History of Present Illness INITIAL COMMENTS - FREE TEXT/NARRATIVE: Patient is a 69-year-old male brought in by [facility] after having a syncopal episode at home. He states that he got up this morning and went downstairs use the bathroom. On his way back upstairs, he became dizzy, short of breath, and developed chest pain "with each breath he took ". He was able to get back up to his room, but had a syncopal episode next to his bed. Patient states he did not hit his head and currently has no headache. His chest pain has essentially resolved, however he states if he takes a "very deep breath "he can still feel it "a little bit ". He has no cardiac or pulmonary history. He does have a history of seizures, however his witnessed the syncopal episode and there was no seizure activity noted. Prior to this episode , patient was feeling well, he has had no fever, chills, or other respiratory symptoms. He denies any recent pain or swelling in his lower extremities. He did receive aspirin 324 mg in route by EMS. 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 Left Chest Pain Score (Numeric/FACES): 4 - Related Data Allergies Allergy/AdvReac Type Severity Reaction Status Date / Time codeine Allergy Severe Itching Verified 03/19/20 10:19 Home Meds: Home Meds Levothyroxine [Synthroid] 0 mcg PO DAILY 10/10/15 [History] PARoxetine [Paxil] 40 mg PO DAILY 10/10/15 [History] lamoTRIgine [Lamotrigine] 200 mg PO BID 10/10/15 [History] levETIRAcetam [Levetiracetam] 500 mg PO BID 10/10/15 [History] traZODone 100 mg PO BEDTIME 10/10/15 [History] Past Medical History HEENT History: Reports: Hard of Hearing Cardiovascular History: Reports: None Respiratory History: Reports: None Gastrointestinal History: Reports: None Genitourinary History: Reports: None Other Musculoskeletal History: herniated disc Neurological History: Reports: Headaches, Chronic, Seizure Psychiatric History: Reports: Anxiety, Bipolar, Depression, PTSD Endocrine/Metabolic History: Reports: Hypothyroidism Hematologic History: Reports: None Immunologic History: Reports: None Oncologic (Cancer) History: Reports: None Dermatologic History: Reports: None - Infectious Disease History Infectious Disease History: Reports: None - Past Surgical History HEENT Surgical History: Reports: Myringotomy w Tube(s), Other (See Below) Other HEENT Surgeries/Procedures: ear surgeries Musculoskeletal Surgical History: Reports: Arthroscopic Procedure Social & Family History - Tobacco Use Smoking Status *Q: Current Every Day Smoker Years of Tobacco use: 56 Packs/Tins Daily: 1 - Caffeine Use Caffeine Use: Reports: Coffee - Recreational Drug Use Recreational Drug Use: No - Living Situation & Occupation Living situation: Reports: Occupation: Unemployed ED ROS GENERAL - Review of Systems Review Of Systems: Comprehensive ROS is negative, except as noted in HPI. ED EXAM, GENERAL - Physical Exam Exam: See Below Exam Limited By: No Limitations General Appearance: Alert, WD/WN, No Apparent Distress Eye Exam: Bilateral Eye: Normal Inspection, PERRL Head: Atraumatic, Normocephalic Respiratory/Chest: No Respiratory Distress, Lungs Clear, Normal Breath Sounds, No Accessory Muscle Use, Chest Non-Tender Cardiovascular: Normal Peripheral Pulses, Regular Rate, Rhythm, No Edema, No Gallop, No JVD, No Murmur, No Rub GI/Abdominal: Normal Bowel Sounds, Soft, Non-Tender, No Organomegaly, No Distention, No Abnormal Bruit, No Mass Extremities: Normal Inspection, Normal Range of Motion, Non-Tender, Normal Capillary Refill, No Pedal Edema Neurological: Alert, Oriented, CN II-XII Intact, Normal Cognition, Normal Gait, Normal Reflexes, No Motor/Sensory Deficits Psychiatric: Normal Affect, Normal Mood Skin Exam: Warm, Dry, Intact, Normal Color, No Rash EKG INTERPRETATION EKG Date: 03/19/20 Time: 10:14 Rhythm: NSR Rate (Beats/Min): 97 [place]: Normal P-Wave: Present QRS: RBBB ST-T: Depressed (V3 and V4 with t-wave inversion) QT: Prolonged Course - Vital Signs Last Recorded V/S: Last Vital Signs Temp 97.6 F 03/19/20 10:15 Pulse 95 03/19/20 15:00 Resp 22 H 03/19/20 15:00 BP 134/86 03/19/20 15:00 Pulse Ox 92 L 04/30/20 15:00 - Orders/Labs/Meds Orders: Active Orders 24 hr Category Date Time Status EKG Documentation Completion [RC] ASDIRECTED Care 03/19/20 10:51 Active EKG Documentation Completion [RC] STAT Care 03/19/20 13:35 Active EKG 12 Lead [EK] Stat Ther 03/19/20 10:51 Ordered Labs: Laboratory Tests 03/19/20 03/19/20 03/19/20 Range/Units 11:01 11:01 11:01 WBC 12.82 H (4.23-9.07) K/mm3 RBC 5.08 (4.63-6.08) M/mm3 Hgb 17.2 D (13.7-17.5) gm/dl Hct 51.0 (40.1-51.0) % MCV 100.4 H D (79.0-92.2) fl MCH 33.9 H (25.7-32.2) pg MCHC 33.7 (32.2-35.5) g/dl RDW Std Deviation 45.6 H (35.1-43.9) fL Plt Count 179 (163-337) K/mm3 MPV 9.7 (9.4-12.3) fl Neut % (Auto) 85.2 H (34.0-67.9) % Lymph % (Auto) 3.7 L (21.8-53.1) % [place] % (Auto) 10.2 (5.3-12.2) % Eos % (Auto) 0.2 L (0.8-7.0) Baso % (Auto) 0.2 (0.1-1.2) % Neut # (Auto) 10.93 H (1.78-5.38) K/mm3 Lymph # (Auto) 0.48 L (1.32-3.57) K/mm3 [place] # (Auto) 1.31 H (0.30-0.82) K/mm3 Eos # (Auto) 0.02 L (0.04-0.54) K/mm3 Baso # (Auto) 0.02 (0.01-0.08) K/mm3 Manual Slide Review Abnormal smear PT 10.9 (9.7-12.0) SECONDS INR 1.00 D-Dimer, Quantitative 14.07 H (0.19-0.50) mg/L Sodium 136 (136-145) mEq/L Potassium 4.4 (3.5-5.1) mEq/L Chloride 99 (98-107) mEq/L Carbon Dioxide 22 (21-32) mEq/L Anion Gap 19.4 H (5-15) BUN 9 (7-18) mg/dL Creatinine 0.9 (0.7-1.3) mg/dL Est Cr Clr Drug Dosing 79.98 mL/min Estimated GFR (MDRD) > 60 (>60) mL/min BUN/Creatinine Ratio 10.0 L (14-18) Glucose 109 (80-115) mg/dL Calcium 9.9 (8.5-10.1) mg/dL Magnesium (1.8-2.4) mg/dl Total Bilirubin 1.2 H (0.2-1.0) mg/dL AST 25 (15-37) U/L ALT 20 (16-63) U/L Alkaline Phosphatase 74 (46-116) U/L Troponin I 0.450 H* (0.00-0.056) ng/mL Total Protein 8.4 H (6.4-8.2) g/dl Albumin 3.9 (3.4-5.0) g/dl Globulin 4.5 gm/dL Albumin/Globulin Ratio 0.9 L (1-2) 04/30/20 Range/Units 11:01 WBC (4.23-9.07) K/mm3 RBC (4.63-6.08) M/mm3 Hgb (13.7-17.5) gm/dl Hct (40.1-51.0) % MCV (79.0-92.2) fl MCH (25.7-32.2) pg MCHC (32.2-35.5) g/dl RDW Std Deviation (35.1-43.9) fL Plt Count (163-337) K/mm3 MPV (9.4-12.3) fl Neut % (Auto) (34.0-67.9) % Lymph % (Auto) (21.8-53.1) % [place] % (Auto) (5.3-12.2) % Eos % (Auto) (0.8-7.0) Baso % (Auto) (0.1-1.2) % Neut # (Auto) (1.78-5.38) K/mm3 Lymph # (Auto) (1.32-3.57) K/mm3 [place] # (Auto) (0.30-0.82) K/mm3 Eos # (Auto) (0.04-0.54) K/mm3 Baso # (Auto) (0.01-0.08) K/mm3 Manual Slide Review PT (9.7-12.0) SECONDS INR D-Dimer, Quantitative (0.19-0.50) mg/L Sodium (136-145) mEq/L Potassium (3.5-5.1) mEq/L Chloride (98-107) mEq/L Carbon Dioxide (21-32) mEq/L Anion Gap (5-15) BUN (7-18) mg/dL Creatinine (0.7-1.3) mg/dL Est Cr Clr Drug Dosing mL/min Estimated GFR (MDRD) (>60) mL/min BUN/Creatinine Ratio (14-18) Glucose (80-115) mg/dL Calcium (8.5-10.1) mg/dL Magnesium 2.0 (1.8-2.4) mg/dl Total Bilirubin (0.2-1.0) mg/dL AST (15-37) U/L ALT (16-63) U/L Alkaline Phosphatase (46-116) U/L Troponin I (0.00-0.056) ng/mL Total Protein (6.4-8.2) g/dl Albumin (3.4-5.0) g/dl Globulin gm/dL Albumin/Globulin Ratio (1-2) Meds: Medications Discontinued Medications Generic Name Dose Route Start Last Admin Trade Name Freq PRN Reason Stop Dose Admin Heparin Sodium (Porcine) 5,000 units 03/19/20 12:11 03/19/20 12:37 Heparin Sodium IVPUSH 03/19/20 12:12 5,000 units .BOLUS ONE Administration Heparin Sodium/Dextrose 25,000 units in 500 mls @ 26 mls/hr 03/19/20 12:15 12:37 Heparin 25,000 Units In D5w 500 Ml IV 1,300 units/hr TITRATE ANNA 26 mls/hr Administration Protocol 1,300 UNITS/HR Sodium Chloride 100 mls @ 60 mls/hr 03/19/20 12:30 03/19/20 12:33 Normal Saline IV 60 mls/hr ASDIRECTED ANNA Administration Iopamidol 100 ml 03/19/20 12:17 03/19/20 12:33 Isovue-370 (76%) IVPUSH 03/19/20 12:18 100 ml ONETIME ONE Administration Sodium Chloride 10 ml 03/19/20 12:17 03/19/20 12:33 Saline Flush FLUSH 03/19/20 12:18 10 ml ONETIME ONE Administration - Re-Assessments/Exams Free Text/Narrative Re-Assessment/Exam: Based on patient's history and exam, there is a high suspicion for a PE. CBC, CMP, d-dimer, troponin, and magnesium have been ordered. Patient is currently saturating 90 to 92% on room air. He already received aspirin in route. 03/19/20 12:19 Hematology was significant for d-dimer elevated at 14.07, as well as a troponin of 0.45. EKG showed ST depression with T wave inversion in leads V3 and V4, as well as a right bundle branch block and QT prolongation. Due to the patient's history and presentation, I feel it is very likely that he has a PE causing cardiac strain. We have started a heparin drip per VTE protocol as well as a CT angio. Patient continues to be hemodynamically stable. 03/19/20 14:13 CT angio results as follows 1. Extensive pulmonary emboli as noted above. Findings of right heart strain also noted. 2. Small left-sided pleural effusio 3. Parenchymal density within the left lung base either due to atelectasis or developing pulmonary infarct. Consulted the hospitalist here, Dr. Soriano. She requested that we consult cardiology. Called [facility] and spoke with Dr. Baldwin. He recommended the patient be transferred to have an ultrasound done of his heart, as well as consult interventional radiology. Spoke with the interventional radiologist, Dr. Rocha. He recommended observing the patient on a heparin drip for the time being since he is hemodynamically stable. If his condition should deteriorate, at that time they would consider thrombectomy. One call nurse, Ehsan, has paged the hospitalist at [facility] in [place]. I am waiting for a call back at this time. 03/19/20 14:31 Phone call received back from Randolph Oliveira. Hospitalist Dr. Pace has accepted the patient for direct admission. Patient will transport via ground ambulance. Departure - Departure Time of Disposition: 14:25 Disposition: DC/[facility]fer to [facility] 02 Reason for Transfer *Q: Other Condition: Fair Clinical Impression: Pulmonary embolism with acute cor pulmonale Qualifiers: Pulmonary embolism type: saddle Chronicity: acute Qualified Code(s): I26.02 - Saddle embolus of pulmonary artery with acute cor pulmonale Referrals: Brianna Granados MD [Primary Care Provider] - Forms: ED Department Discharge Sepsis Event Note - Evaluation Sepsis Screening Result: No Definite Risk - Focused Exam Vital Signs: Vital Signs Temp Pulse Resp BP Pulse Ox 03/19/20 15:00 95 22 H 134/86 92 L 03/19/20 10:15 97.6 F 99 23 H 150/95 H 91 L Date Exam was Performed: 03/19/20 Time Exam was Performed: 19:54 - My Orders Last 24 Hours: My Active Orders 03/19/20 10:51 EKG Documentation Completion [RC] ASDIRECTED EKG 12 Lead [EK] Stat 03/19/20 13:35 EKG Documentation Completion [RC] STAT - Assessment/Plan Last 24 Hours: My Active Orders 03/19/20 10:51 EKG Documentation Completion [RC] ASDIRECTED EKG 12 Lead [EK] Stat 03/19/20 13:35 EKG Documentation Completion [RC] STAT
[2020-03-19] MEDS ORDERED: Heparin Sodium 5,000 Units/ML Vial IVPUSH ONE (12:11)
[2020-03-19] MEDS ORDERED: Heparin Sodium/D5W 25,000 UNITS/500 ML BAG IV SCH (12:15)
[2020-03-19] MEDS ORDERED: Iopamidol 755 Mg/ML 100 ML Bottle IVPUSH ONE (12:17)
[2020-03-19] MEDS ORDERED: Sodium Chloride 0.9% 10 ML Syringe FLUSH ONE (12:17)
[2020-03-19] MEDS ORDERED: Sodium Chloride 0.9% 100 ML IV SCH (12:30)
--- NOTE | 2020-03-19 13:40 | CR ---
Chest: Portable view of the chest was obtained. Comparison: Prior chest CT of 06/09/16. Heart is slightly prominent but accentuated in size from portable technique. Upper mediastinum is within normal limits. Lungs are clear with no acute parenchymal change. Scoliosis is noted within the spine. Impression: 1. Findings as noted above. 2. Nothing acute is appreciated on portable chest x-ray. Diagnostic code #2 This report was dictated in MDT
--- NOTE | 2020-03-19 13:40 | CT ---
CT chest Technique: Multiple axial sections through the chest were obtained. Intravenous contrast was utilized. Study has been performed as a pulmonary angiogram protocol. Findings: Thrombus is identified within the distal right of the left main pulmonary arteries. Saddle thrombus is identified on the left side. Thrombus is noted within the segmental and subsegmental branches of both lower lobes. Segmental and subsegmental thrombus is noted within the lingula. Small saddle thrombus noted at the origin of the right lower lobe and right middle lobe arteries. Small subsegmental thrombus is noted within the right middle lobe. Small left-sided pleural effusion is seen. Moderately large hiatal hernia is noted. Slight parenchymal density within the left lung base either due to atelectasis or early lung infarct. Left ventricle is compressed with enlarged right ventricle compatible with right ventricular strain. Aorta shows no aneurysm. Scattered lymph nodes within the mediastinum which are felt to be within normal limits. No axillary adenopathy is appreciated. Bone window settings were reviewed which shows scattered endplate spurring within the spine with no acute osseous finding. Impression: 1. Extensive pulmonary emboli as noted above. Findings of right heart strain also noted. 2. Small left-sided pleural effusion. 3. Parenchymal density with the left lung base either due to atelectasis or developing pulmonary infarct. Diagnostic code #5 This report was dictated in MDT
[2020-03-19 15:25] VITALS: BP 134/86; PULSE 95
== END 2020-03-19 15:00 ==
LOC: JD.ED 10:09
DX: I26.02 Saddle embolus of pulmonary artery with acute cor pulmonale (principal); F17.210 Nicotine dependence, cigarettes, uncomplicated; F31.9 Bipolar disorder, unspecified; R56.9 Unspecified convulsions; F41.9 Anxiety disorder, unspecified; Z79.899 Other long term (current) drug therapy; E03.9 Hypothyroidism, unspecified; Z88.5 Allergy status to narcotic agent
CPT/HCPCS: 36415; 71045; 71275; 80053; 83735; 84484; 85025; 85379; 85610; 93005; 96365; 96366; 96376; 99285; J1644; J7050; Q9967

== ENCOUNTER 2020-04-23 10:21 | Emergency (ER) | payer OTHER ==
[2020-04-23] MEDS ORDERED: Sodium Chloride 0.9% 10 ML Syringe FLUSH PRN (10:54)
[2020-04-23] MEDS ORDERED: Sodium Chloride 0.9% 10 ML Syringe FLUSH ONE (10:59)
[2020-04-23] MEDS ORDERED: Iopamidol 755 Mg/ML 100 ML Bottle IVPUSH ONE (10:59)
[2020-04-23] MEDS ORDERED: Sodium Chloride 0.9% 100 ML IV SCH (11:00)
--- NOTE | 2020-04-23 11:31 | CT ---
CT chest Technique: Multiple axial sections through the chest were obtained. Intravenous contrast was utilized. Comparison: Prior CT chest study of 03/19/20. Findings: Previous pulmonary embolism appears to have disappeared. No acute filling defects are seen to indicate pulmonary embolism. Small to moderate sized loculated left-sided pleural effusion is seen. Aorta shows no aneurysm. Mediastinum shows no adenopathy. No axillary adenopathy is seen. Mild atelectasis adjacent to the pleural effusion is seen. Right lung is clear. Small hiatal hernia is noted. Impression: 1. Previous pulmonary embolism has resolved. No acute pulmonary emboli are seen. 2. Small to moderate size loculated pleural effusion on the left side with adjacent atelectasis. 3. Small hiatal hernia. 4. Right lung is clear. Diagnostic code #3 This report was dictated in MDT
--- NOTE | 2020-04-23 12:27 | EDM.PDOC ---
ED HPI GENERAL MEDICAL PROBLEM - General Chief Complaint: Respiratory Problem Stated Complaint: BLOOD CLOT/SOB Time Seen by Provider: 04/23/20 10:31 Source of Information: Reports: Patient History Limitations: Reports: No Limitations - History of Present Illness INITIAL COMMENTS - FREE TEXT/NARRATIVE: The patient presents with shortness of breath with exertion. On March 19 he was seen here for chest pain and shortness of breath. He was found to have a large PE. He went to [facility] in [place] because they felt he may need intervention. He was put on eliquis. Since then he has shortness of breath with exertion. He has a small yard and it took him 2 days to mow it. He has no chest pain. He has no fever, chills, cough, congestion, runny nose, abdominal pain, nausea or vomiting. He has no swelling in his legs. Onset: Gradual Duration: Week(s): Severity: Moderate Improves with: Reports: None Worsens with: Reports: None Associated Symptoms: Reports: Shortness of Breath. Denies: Chest Pain, Cough, Fever/Chills, Headaches, Nausea/Vomiting - Related Data Allergies Allergy/AdvReac Type Severity Reaction Status Date / Time codeine Allergy Severe Itching Verified 04/23/20 10:37 Home Meds: Home Meds Levothyroxine [Synthroid] 50 mcg PO DAILY 10/10/15 [History] PARoxetine [Paxil] 40 mg PO DAILY 10/10/15 [History] lamoTRIgine [Lamotrigine] 200 mg PO BID 10/10/15 [History] levETIRAcetam [Levetiracetam] 500 mg PO BID 10/10/15 [History] traZODone 100 mg PO BEDTIME 10/10/15 [History] Apixaban [Eliquis] 2.5 mg PO BID 04/23/20 [History] Furosemide [Lasix] 20 mg PO DAILY #7 tab 04/23/20 [Rx] Past Medical History HEENT History: Reports: Hard of Hearing Cardiovascular History: Reports: None Respiratory History: Reports: None, PE Gastrointestinal History: Reports: None Genitourinary History: Reports: None Other Musculoskeletal History: herniated disc Neurological History: Reports: Headaches, Chronic, Seizure Psychiatric History: Reports: Anxiety, Bipolar, Depression, PTSD Endocrine/Metabolic History: Reports: Hypothyroidism Hematologic History: Reports: None Immunologic History: Reports: None Oncologic (Cancer) History: Reports: None Dermatologic History: Reports: None - Infectious Disease History Infectious Disease History: Reports: None - Past Surgical History HEENT Surgical History: Reports: Myringotomy w Tube(s), Other (See Below) Other HEENT Surgeries/Procedures: ear surgeries Musculoskeletal Surgical History: Reports: Arthroscopic Procedure Social & Family History - Tobacco Use Smoking Status *Q: Current Every Day Smoker Years of Tobacco use: 50 Packs/Tins Daily: 1 - Caffeine Use Caffeine Use: Reports: Coffee - Recreational Drug Use Recreational Drug Use: Yes Drug Use in Last 12 Months: Yes Recreational Drug Type: Reports: Marijuana/Hashish Recreational Drug Use Frequency: Daily - Living Situation & Occupation Living situation: Reports: Occupation: Unemployed ED ROS GENERAL - Review of Systems Review Of Systems: See Below Constitutional: Reports: No Symptoms HEENT: Reports: No Symptoms Respiratory: Reports: Shortness of Breath. Denies: Cough Cardiovascular: Reports: No Symptoms Endocrine: Reports: No Symptoms GI/Abdominal: Reports: No Symptoms : Reports: No Symptoms Musculoskeletal: Reports: No Symptoms ED EXAM, GENERAL - Physical Exam Exam: See Below Exam Limited By: No Limitations General Appearance: Alert, No Apparent Distress Ears: Normal External Exam Nose: Normal Inspection Head: Atraumatic, Normocephalic Neck: Normal Inspection, Supple, Non-Tender Respiratory/Chest: No Respiratory Distress, Decreased Breath Sounds. No: Wheezing Cardiovascular: Regular Rate, Rhythm, No Edema, No Murmur GI/Abdominal: Soft, Non-Tender, No Organomegaly, No Mass Extremities: Normal Inspection, Other (No edema in his legs) EKG INTERPRETATION EKG Date: 04/23/20 Time: 11:23 Rhythm: NSR Rate (Beats/Min): 72 [place]: Normal P-Wave: Present QRS: Normal ST-T: Depressed (anterior) QT: Normal MT/PQ Interval: Q waves in the anterior leads Comparison: No Change Course - Vital Signs Last Recorded V/S: Last Vital Signs Temp 97.8 F 04/23/20 10:30 Pulse 85 04/23/20 10:30 Resp 18 04/23/20 10:30 BP 144/73 H 04/23/20 10:30 Pulse Ox 95 04/23/20 10:30 - Orders/Labs/Meds Orders: Active Orders 24 hr Category Date Time Status Cardiac Monitoring [RC] . DIRECTED Care 04/23/20 10:54 Active EKG Documentation Completion [RC] STAT Care 04/23/20 10:55 Active Peripheral IV Care [RC] . DIRECTED Care 04/23/20 10:55 Active Sodium Chloride 0.9% [Normal Saline] 100 ml Med 04/23/20 11:00 Active IV ASDIRECTED Sodium Chloride 0.9% [Saline Flush] Med 04/23/20 10:54 Active 10 ml FLUSH ASDIRECTED PRN Peripheral IV Insertion Adult [OM.PC] Stat Oth 04/23/20 10:54 Ordered Medication Orders Sodium Chloride (Normal Saline) 100 mls @ 60 mls/hr IV ASDIRECTED ANNA Last Admin: 04/23/20 11:20 Dose: 60 mls/hr Sodium Chloride (Saline Flush) 10 ml FLUSH ASDIRECTED PRN PRN Reason: Keep Vein Open Last Admin: 04/23/20 11:12 Dose: 10 ml Labs: Laboratory Tests 04/23/20 04/23/20 04/23/20 Range/Units 10:59 10:59 10:59 WBC 7.69 (4.23-9.07) K/mm3 RBC 4.22 L (4.63-6.08) M/mm3 Hgb 14.0 D (13.7-17.5) gm/dl Hct 42.6 (40.1-51.0) % MCV 100.9 H (79.0-92.2) fl MCH 33.2 H (25.7-32.2) pg MCHC 32.9 (32.2-35.5) g/dl RDW Std Deviation 46.9 H (35.1-43.9) fL Plt Count 276 D (163-337) K/mm3 MPV 9.3 L (9.4-12.3) fl Neut % (Auto) 74.8 H (34.0-67.9) % Lymph % (Auto) 10.5 L (21.8-53.1) % [place] % (Auto) 9.5 (5.3-12.2) % Eos % (Auto) 4.0 (0.8-7.0) Baso % (Auto) 0.4 (0.1-1.2) % Neut # (Auto) 5.75 H (1.78-5.38) K/mm3 Lymph # (Auto) 0.81 L (1.32-3.57) K/mm3 [place] # (Auto) 0.73 (0.30-0.82) K/mm3 Eos # (Auto) 0.31 (0.04-0.54) K/mm3 Baso # (Auto) 0.03 (0.01-0.08) K/mm3 Sodium 137 (136-145) mEq/L Potassium 4.1 (3.5-5.1) mEq/L Chloride 100 (98-107) mEq/L Carbon Dioxide 25 (21-32) mEq/L Anion Gap 16.1 H (5-15) BUN 10 (7-18) mg/dL Creatinine 0.9 (0.7-1.3) mg/dL Est Cr Clr Drug Dosing 79.98 mL/min Estimated GFR (MDRD) > 60 (>60) mL/min BUN/Creatinine Ratio 11.1 L (14-18) Glucose 95 (80-115) mg/dL Calcium 9.0 (8.5-10.1) mg/dL Total Bilirubin 0.6 (0.2-1.0) mg/dL AST 17 (15-37) U/L ALT 18 (16-63) U/L Alkaline Phosphatase 68 (46-116) U/L Troponin I < 0.017 (0.00-0.056) ng/mL NT-Pro-B Natriuret Pep 82 (0-125) pg/mL Total Protein 7.4 (6.4-8.2) g/dl Albumin 3.3 L (3.4-5.0) g/dl Globulin 4.1 gm/dL Albumin/Globulin Ratio 0.8 L (1-2) Meds: Medications Generic Name Dose Route Start Last Admin Trade Name Freq PRN Reason Stop Dose Admin Sodium Chloride 100 mls @ 60 mls/hr 04/23/20 11:00 04/23/20 11:20 Normal Saline IV 60 mls/hr ASDIRECTED ANNA Administration Sodium Chloride 10 ml 04/23/20 10:54 04/23/20 11:12 Saline Flush FLUSH 10 ml ASDIRECTED PRN Administration Keep Vein Open Discontinued Medications Generic Name Dose Route Start Last Admin Trade Name Freq PRN Reason Stop Dose Admin Iopamidol 100 ml 04/23/20 10:59 04/23/20 11:19 Isovue-370 (76%) IVPUSH 04/23/20 11:00 100 ml ONETIME ONE Administration Sodium Chloride 10 ml 04/23/20 10:59 04/23/20 11:19 Saline Flush FLUSH 04/23/20 11:00 10 ml ONETIME ONE Administration - Re-Assessments/Exams Free Text/Narrative Re-Assessment/Exam: 04/23/20 12:49 I ordered an IV saline lock, EKG, labs and a CT of his chest. His EKG shows a NSR with no acute changes. He does have some flipped T waves and Q waves in the anterior leads. His CBC and CMP look good. His troponin and BNP are negative. His CT shows previous pulmonary embolism has resolved. No acute pulmonary emboli are seen. Small to moderate size loculated pleural effusion on the left side with adjacent atelectasis. Small hiatal hernia. Right lung is clear. I do not feel he needs admission or thorocentesis at this time. I would like to start him on lasix 20mg daily. I called Dr Arredondo our general surgeon manager production and he wanted him to follow up with his provider and if he is not better in a few days he could do it. I called Dr Granados at [facility] and her staff will call him with a time to come in. Departure - Departure Time of Disposition: 12:55 Disposition: Home, Self-Care 01 Condition: Good Clinical Impression: Pleural effusion, left - Discharge Information *PRESCRIPTION DRUG MONITORING PROGRAM REVIEWED*: Not Applicable *COPY OF PRESCRIPTION DRUG MONITORING REPORT IN PATIENT ESTELITA: Not Applicable Prescriptions: Furosemide [Lasix] 20 mg PO DAILY #7 tab Referrals: Brianna Granados MD [Primary Care Provider] - 1 Week Forms: ED Department Discharge Additional Instructions: Take your medications as prescribed. Take the lasix daily for a week. The [facility] will call you with a time to come in next week. If you feel worse call them or return here. Sepsis Event Note - Evaluation Sepsis Screening Result: No Definite Risk - Focused Exam Vital Signs: Vital Signs Temp Pulse Resp BP Pulse Ox 04/23/20 10:30 97.8 F 85 18 144/73 H 95 Date Exam was Performed: 04/23/20 Time Exam was Performed: 12:48 - My Orders Last 24 Hours: My Active Orders 04/23/20 10:54 Cardiac Monitoring [RC] . DIRECTED Sodium Chloride 0.9% [Saline Flush] 10 ml FLUSH ASDIRECTED PRN Peripheral IV Insertion Adult [OM.PC] Stat 04/23/20 10:55 EKG Documentation Completion [RC] STAT Peripheral IV Care [RC] . DIRECTED 04/23/20 11:00 Sodium Chloride 0.9% [Normal Saline] 100 ml IV ASDIRECTED - Assessment/Plan Last 24 Hours: My Active Orders 04/23/20 10:54 Cardiac Monitoring [RC] . DIRECTED Sodium Chloride 0.9% [Saline Flush] 10 ml FLUSH ASDIRECTED PRN Peripheral IV Insertion Adult [OM.PC] Stat 04/23/20 10:55 EKG Documentation Completion [RC] STAT Peripheral IV Care [RC] . DIRECTED 04/23/20 11:00 Sodium Chloride 0.9% [Normal Saline] 100 ml IV ASDIRECTED
[2020-04-23 13:15] VITALS: BP 139/74; PULSE 68
== END 2020-04-23 13:10 | disposition home or self-care (01) ==
LOC: JD.ED 10:21
DX: J90 Pleural effusion, not elsewhere classified (principal); E03.9 Hypothyroidism, unspecified; F31.9 Bipolar disorder, unspecified; F41.9 Anxiety disorder, unspecified; F17.210 Nicotine dependence, cigarettes, uncomplicated; Z79.899 Other long term (current) drug therapy; Z88.5 Allergy status to narcotic agent; Z86.711 Personal history of pulmonary embolism; Z79.01 Long term (current) use of anticoagulants
CPT/HCPCS: 36415; 71275; 80053; 83880; 84484; 85025; 93005; 99285; J7050; Q9967

== ENCOUNTER 2020-04-25 13:41 | Emergency (ER) | payer OTHER ==
[2020-04-25] MEDS ORDERED: Sodium Chloride 0.9% 10 ML Syringe FLUSH PRN ×2 (13:46→14:03)
[2020-04-25 13:48] VITALS: PULSE 66
--- NOTE | 2020-04-25 13:58 | EDM.PDOC ---
ED HPI GENERAL MEDICAL PROBLEM - General Chief Complaint: Back Pain or Injury Stated Complaint: [facility] Time Seen by Provider: 04/25/20 13:46 Source of Information: Reports: Patient History Limitations: Reports: No Limitations - History of Present Illness INITIAL COMMENTS - FREE TEXT/NARRATIVE: The patient presents by [facility] for a fall and left flank pain. He was outside at the end of his driveway yesterday and he was stepping up on some railroad ties and he tripped and fall and landed on his left flank. He has a contusion to the left flank. He did not hit his head and he has no neck pain. He is on eliquis because he had a PE March 19. He was seen here 2 days ago for shortness of breath with exertion. He was found to have a pleural effusion. He was put on lasix to see if that helps with the fluid. If it does not, then he may need a thorocentesis. He has no chest pain. He does have some abdominal pain that radiates from his left flank. He has no pain in his left hip, legs or arm. Onset: Sudden Duration: Minutes: Location: Reports: Back Quality: Reports: Sharp Severity: Severe Improves with: Reports: Immobilization Worsens with: Reports: Movement Context: Reports: Trauma Associated Symptoms: Reports: No Other Symptoms Lower Back Pain Score (Numeric/FACES): 8 - Related Data Allergies Allergy/AdvReac Type Severity Reaction Status Date / Time codeine Allergy Severe Itching Verified 04/25/20 13:48 Home Meds: Home Meds Levothyroxine [Synthroid] 50 mcg PO DAILY 10/10/15 [History] PARoxetine [Paxil] 40 mg PO DAILY 10/10/15 [History] lamoTRIgine [Lamotrigine] 200 mg PO BID 10/10/15 [History] levETIRAcetam [Levetiracetam] 500 mg PO BID 10/10/15 [History] traZODone 100 mg PO BEDTIME 10/10/15 [History] Apixaban [Eliquis] 2.5 mg PO BID 04/23/20 [History] Furosemide [Lasix] 20 mg PO DAILY #7 tab 04/23/20 [Rx] oxyCODONE HCl/Acetaminophen [Percocet 5-325 mg Tablet] 1 each PO Q6HR PRN #15 tablet 04/25/20 [Rx] Past Medical History HEENT History: Reports: Hard of Hearing Cardiovascular History: Reports: None Respiratory History: Reports: None, PE Gastrointestinal History: Reports: None Genitourinary History: Reports: None Other Musculoskeletal History: herniated disc Neurological History: Reports: Headaches, Chronic, Seizure Psychiatric History: Reports: Anxiety, Bipolar, Depression, PTSD Endocrine/Metabolic History: Reports: Hypothyroidism Hematologic History: Reports: None Immunologic History: Reports: None Oncologic (Cancer) History: Reports: None Dermatologic History: Reports: None - Infectious Disease History Infectious Disease History: Reports: None - Past Surgical History HEENT Surgical History: Reports: Myringotomy w Tube(s), Other (See Below) Other HEENT Surgeries/Procedures: ear surgeries Musculoskeletal Surgical History: Reports: Arthroscopic Procedure Social & Family History - Tobacco Use Smoking Status *Q: Current Every Day Smoker Years of Tobacco use: 55 Packs/Tins Daily: 1 - Caffeine Use Caffeine Use: Reports: Coffee - Alcohol Use Days Per Week of Alcohol Use: 7 Number of Drinks Per Day: 2 Total Drinks Per Week: 14 - Recreational Drug Use Recreational Drug Use: Yes Drug Use in Last 12 Months: Yes Recreational Drug Type: Reports: Marijuana/Hashish Recreational Drug Use Frequency: Daily - Living Situation & Occupation Living situation: Reports: Occupation: Unemployed ED ROS GENERAL - Review of Systems Review Of Systems: See Below Constitutional: Reports: No Symptoms HEENT: Reports: No Symptoms Respiratory: Reports: No Symptoms Cardiovascular: Reports: No Symptoms Endocrine: Reports: No Symptoms GI/Abdominal: Reports: Abdominal Pain. Denies: Nausea, Vomiting : Reports: Flank Pain Musculoskeletal: Reports: Back Pain ED EXAM,LOWER BACK PAIN/INJURY - Physical Exam Exam: See Below Exam Limited By: No Limitations General Appearance: Alert, No Apparent Distress Ears: Normal External Exam Nose: Normal Inspection Head: Atraumatic, Normocephalic Neck: Normal Inspection, Supple, Non-Tender Respiratory/Chest: No Respiratory Distress, Lungs Clear, Normal Breath Sounds Cardiovascular: Regular Rate, Rhythm, No Edema, No Murmur GI/Abdominal: Soft, No Organomegaly, No Mass, Tender (Mild tenderness to the left side of his abdomen) Back Exam: Other (Ecchymosis, edema and pain to the left lower back) Extremities: Normal Inspection Neurological: Alert, No Motor/Sensory Deficits, Oriented x 3 Course - Vital Signs Last Recorded V/S: Last Vital Signs Temp 98.9 F 04/25/20 13:43 Pulse 66 04/25/20 13:43 Resp 16 04/25/20 13:43 BP 167/87 H 04/25/20 13:43 Pulse Ox 99 04/25/20 13:43 - Orders/Labs/Meds Orders: Active Orders 24 hr Category Date Time Status Cardiac Monitoring [RC] . DIRECTED Care 04/25/20 13:46 Active Peripheral IV Care [RC] . DIRECTED Care 04/25/20 13:47 Active HYDROmorphone [Dilaudid] Med 04/25/20 15:22 Once 0.5 mg IVPUSH ONETIME ONE Sodium Chloride 0.9% [Saline Flush] Med 04/25/20 13:46 Active 10 ml FLUSH ASDIRECTED PRN Sodium Chloride 0.9% [Saline Flush] Med 04/25/20 14:03 Active 10 ml FLUSH ONETIME PRN Peripheral IV Insertion Adult [OM.PC] Stat Oth 04/25/20 13:46 Ordered Medication Orders Sodium Chloride (Saline Flush) 10 ml FLUSH ASDIRECTED PRN PRN Reason: Keep Vein Open Last Admin: 04/25/20 13:51 Dose: 10 ml Sodium Chloride (Saline Flush) 10 ml FLUSH ONETIME PRN PRN Reason: IV FLUSH Last Admin: 04/25/20 14:10 Dose: 10 ml Labs: Laboratory Tests 04/25/20 04/25/20 04/25/20 Range/Units 13:50 13:50 14:00 WBC 6.85 (4.23-9.07) K/mm3 RBC 4.26 L (4.63-6.08) M/mm3 Hgb 14.3 (13.7-17.5) gm/dl Hct 42.3 (40.1-51.0) % MCV 99.3 H (79.0-92.2) fl MCH 33.6 H (25.7-32.2) pg MCHC 33.8 (32.2-35.5) g/dl RDW Std Deviation 45.1 H (35.1-43.9) fL Plt Count 257 (163-337) K/mm3 MPV 9.5 (9.4-12.3) fl Neut % (Auto) 84.2 H (34.0-67.9) % Lymph % (Auto) 6.0 L (21.8-53.1) % [place] % (Auto) 8.8 (5.3-12.2) % Eos % (Auto) 0.3 L (0.8-7.0) Baso % (Auto) 0.3 (0.1-1.2) % Neut # (Auto) 5.77 H (1.78-5.38) K/mm3 Lymph # (Auto) 0.41 L (1.32-3.57) K/mm3 [place] # (Auto) 0.60 (0.30-0.82) K/mm3 Eos # (Auto) 0.02 L (0.04-0.54) K/mm3 Baso # (Auto) 0.02 (0.01-0.08) K/mm3 Manual Slide Review Abnormal smear Sodium 135 L (136-145) mEq/L Potassium 4.2 (3.5-5.1) mEq/L Chloride 97 L (98-107) mEq/L Carbon Dioxide 20 L (21-32) mEq/L Anion Gap 22.2 H (5-15) BUN 7 (7-18) mg/dL Creatinine 0.9 (0.7-1.3) mg/dL Est Cr Clr Drug Dosing 72.42 mL/min Estimated GFR (MDRD) > 60 (>60) mL/min BUN/Creatinine Ratio 7.8 L (14-18) Glucose 93 (80-115) mg/dL Calcium 9.2 (8.5-10.1) mg/dL Total Bilirubin 0.8 (0.2-1.0) mg/dL AST 18 (15-37) U/L ALT 17 (16-63) U/L Alkaline Phosphatase 69 (46-116) U/L Total Protein 7.5 (6.4-8.2) g/dl Albumin 3.4 (3.4-5.0) g/dl Globulin 4.1 gm/dL Albumin/Globulin Ratio 0.8 L (1-2) Urine Color Yellow (Yellow) Urine Appearance Clear (Clear) Urine pH 7.0 (5.0-8.0) Ur Specific [place] 1.020 (1.005-1.030) Urine Protein Negative (Negative) Urine Glucose (UA) Negative (Negative) Urine Ketones 2+ H (Negative) Urine Occult Blood Trace-lysed H (Negative) Urine Nitrite Negative (Negative) Urine Bilirubin 1+ H (Negative) Urine Urobilinogen 1.0 (0.2-1.0) Ur Leukocyte Esterase 1+ H (Negative) Urine RBC 5-10 H (0-5) /hpf Urine WBC 40-50 H (0-5) /hpf Urine WBC Clumps Few (NOT SEEN) /hpf Ur Squamous Epith Cells 10-20 H (0-5) /hpf Urine Bacteria Few (FEW) /hpf Urine Mucus Few (FEW) /hpf Meds: Medications Generic Name Dose Route Start Last Admin Trade Name Freq PRN Reason Stop Dose Admin Sodium Chloride 10 ml 04/25/20 13:46 04/25/20 13:51 Saline Flush FLUSH 10 ml ASDIRECTED PRN Administration Keep Vein Open Sodium Chloride 10 ml 04/25/20 14:03 04/25/20 14:10 Saline Flush FLUSH 10 ml ONETIME PRN Administration IV FLUSH Discontinued Medications Generic Name Dose Route Start Last Admin Trade Name Freq PRN Reason Stop Dose Admin Hydromorphone HCl 0.5 mg 04/25/20 14:00 04/25/20 14:04 Dilaudid IVPUSH 04/25/20 14:01 0.5 mg ONETIME ONE Administration Iopamidol 100 ml 04/25/20 14:03 04/25/20 14:10 [id number] (76%) IVPUSH 04/25/20 14:04 100 ml ONETIME ONE Administration - Re-Assessments/Exams Free Text/Narrative Re-Assessment/Exam: 04/25/20 14:01 I ordered an IV saline lock, dilaudid 0.5mg IV, labs, UA and a CT of his abdomen and pelvis and lumbar spine. 04/25/20 15:24 His CBC looks good. His Na is a little low at 135. His anion gap is elevated at 22.2. His CT of his lumbar spine shows diffuse degenerative change. No acute fracture is seen. Old left sided transverse process fractures are noted. He is not sure when those old fractures would have happened. He is still better but having some pain. I ordered another dose of dilaudid and I will discharge him home with something for pain. Departure - Departure Time of Disposition: 15:30 Disposition: Home, Self-Care 01 Condition: Good Clinical Impression: Fall Qualifiers: Encounter type: initial encounter Qualified Code(s): W19.XXXA - Unspecified fall, initial encounter Contusion of lower back Qualifiers: Encounter type: initial encounter Qualified Code(s): S30.0XXA - Contusion of lower back and pelvis, initial encounter - Discharge Information *PRESCRIPTION DRUG MONITORING PROGRAM REVIEWED*: No *COPY OF PRESCRIPTION DRUG MONITORING REPORT IN PATIENT ESTELITA: No Prescriptions: oxyCODONE HCl/Acetaminophen [Percocet 5-325 mg Tablet] 1 each PO Q6HR PRN #15 tablet PRN Reason: Pain Referrals: Brianna Granados MD [Primary Care Provider] - 1 Week Forms: ED Department Discharge Additional Instructions: Ice the areas that hurt for 15 minutes 3 times per day for 2 days. Take tylenol for pain. If that does not help try the percocet. Please return if you are worse. Sepsis Event Note - Evaluation Sepsis Screening Result: No Definite Risk - Focused Exam Vital Signs: Vital Signs Temp Pulse Resp BP Pulse Ox 04/25/20 13:43 98.9 F 66 16 167/87 H 99 Date Exam was Performed: 04/25/20 Time Exam was Performed: 15:23 - My Orders Last 24 Hours: My Active Orders 04/25/20 13:46 Cardiac Monitoring [RC] . DIRECTED Sodium Chloride 0.9% [Saline Flush] 10 ml FLUSH ASDIRECTED PRN Peripheral IV Insertion Adult [OM.PC] Stat 04/25/20 13:47 Peripheral IV Care [RC] . DIRECTED 04/25/20 14:03 Sodium Chloride 0.9% [Saline Flush] 10 ml FLUSH ONETIME PRN 04/25/20 15:22 HYDROmorphone [Dilaudid] 0.5 mg IVPUSH ONETIME ONE - Assessment/Plan Last 24 Hours: My Active Orders 04/25/20 13:46 Cardiac Monitoring [RC] . DIRECTED Sodium Chloride 0.9% [Saline Flush] 10 ml FLUSH ASDIRECTED PRN Peripheral IV Insertion Adult [OM.PC] Stat 04/25/20 13:47 Peripheral IV Care [RC] . DIRECTED 04/25/20 14:03 Sodium Chloride 0.9% [Saline Flush] 10 ml FLUSH ONETIME PRN 04/25/20 15:22 HYDROmorphone [Dilaudid] 0.5 mg IVPUSH ONETIME ONE
[2020-04-25] MEDS ORDERED: HYDROmorphone 0.5 MG/0.5 ML Syringe IVPUSH ONE ×2 (14:00→15:22)
[2020-04-25] MEDS ORDERED: Iopamidol 755 Mg/ML 100 ML Bottle IVPUSH ONE (14:03)
--- NOTE | 2020-04-25 15:03 | CT ---
CT abdomen and pelvis Technique: Multiple axial sections were obtained from above the dome of the diaphragm inferiorly through the pubic symphysis. Findings: Left-sided pleural effusion is seen which appears similar to previous chest CT study of 04/23/20. Fatty infiltration is noted within the liver. Moderately large hiatal hernia is noted. Several calcifications are seen within the spleen compatible with calcified granulomas. Small nonobstructing calculus is noted within the right kidney. Small cyst is noted within the right kidney measuring about 1.0 cm. Pancreas shows no discrete abnormality. Gallbladder contains no calcified gallstones. Aorta shows atherosclerotic change without aneurysm. Appendix is seen which is normal. No retroperitoneal adenopathy or mesenteric abnormalities are seen. No pelvic mass or adenopathy is seen. Small bladder diverticula is noted off the left side measuring 2.0 cm in size. No free fluid or inflammatory change is seen. Delayed images shows contrast within the distal ureters and within the bladder. Bladder wall is somewhat thickened most likely relating to element of bladder obstruction. Bone window settings were reviewed. Degenerative change is scattered within the spine. No acute osseous finding is appreciated. Impression: 1. Left-sided pleural effusion without definite change from previous chest CT study of 04/23/20. 2. Other findings as described above. 3. Nothing acute is appreciated on CT study of the abdomen and pelvis. Diagnostic code #2 This report was dictated in MDT
--- NOTE | 2020-04-25 15:03 | CT ---
CT lumbar spine Technique: Multiple axial sections through the lumbar spine were obtained. Comparison: No prior lumbar spine study. Findings: Left-sided pleural effusion is noted. Scattered endplate osteophytes are seen. Vertebral body heights are maintained. No fracture is appreciated. T10-11: Mild disc space narrowing noted. Posterior disc is preserved. No central canal stenosis or neural foraminal stenosis is seen. T11-12: Posterior disc space narrowing is seen. Posterior disc is maintained. No central canal stenosis or neural foraminal stenosis is seen. T12-L1: Posterior disc space narrowing is seen. Posterior disc is otherwise preserved. No central canal stenosis or neural foraminal stenosis is seen. L1-2: Mild disc space narrowing is seen. Posterior disc space is maintained. Posterior disc has a concave margin. No central canal stenosis or neural foraminal stenosis. Small displaced fracture within the tip of the spinous process of L2 is seen which is felt to be old. L2-3: Mild circumferential disc bulge is seen. Posterior disc maintains the concave margin. No central canal stenosis is seen. Neural foramina are patent where the nerve roots exits. Old healed fracture within the transverse process of L3 is noted. L3-4: Minimal retrolisthesis is seen. Slight circumferential disc bulge is noted. Findings cause minimal central canal stenosis. Neural foramina are patent where the nerve root exits. Old healed transverse process fracture on the left side at L4 is seen. L4-5: Slight circumferential disc bulge is seen. No central canal stenosis or neural foraminal stenosis is seen. L5-S1: Vacuum disc phenomena is seen. Mild posterior spurring and mild diffuse posterior disc bulge is seen. Neural foramina are patent where the nerve roots exit. Mild to moderate diffuse degenerative apophyseal change is seen. Impression: 1. Diffuse degenerative change as described above. 2. No acute fracture is seen. 3. Old left-sided transverse process fractures are noted. Diagnostic code #3 This report was dictated in MDT
[2020-04-25 15:33] VITALS: BP 145/86
== END 2020-04-25 16:10 | disposition home or self-care (01) ==
LOC: JD.ED 13:41
DX: S30.0XXA Contusion of lower back and pelvis, initial encounter (principal); E03.9 Hypothyroidism, unspecified; F41.9 Anxiety disorder, unspecified; F31.9 Bipolar disorder, unspecified; F43.10 Post-traumatic stress disorder, unspecified; R56.9 Unspecified convulsions; F17.210 Nicotine dependence, cigarettes, uncomplicated; Z79.899 Other long term (current) drug therapy; Z88.5 Allergy status to narcotic agent; W01.0XXA Fall on same level from slipping, tripping and stumbling without subsequent striking against object, initial encounter
CPT/HCPCS: 36415; 72131; 74177; 80053; 81001; 85025; 96374; 96376; 99284; J1170; Q9967; 99283

== ENCOUNTER 2020-06-05 18:51 | Emergency (ER) | payer OTHER ==
--- NOTE | 2020-06-05 19:11 | EDM.PDOC ---
ED HPI GENERAL MEDICAL PROBLEM - General Chief Complaint: Trauma Stated Complaint: [facility] Time Seen by Provider: 06/05/20 18:58 Source of Information: Reports: Patient History Limitations: Reports: Intoxication - History of Present Illness INITIAL COMMENTS - FREE TEXT/NARRATIVE: A trauma alert was called for this patient. Mr. Pagan is a very pleasant 70-year-old gentleman, who, according to the patient's triage nurse, the patient drank 5-6 beers at a bar, then fell 3 or 4 times. He does not appear to be injured, however, it is our understanding that the metal fabricating shop helper may have called an ambulance to have him brought to the ED for evaluation. A trauma alert was called, because the patient is on Eliquis due to a prior PE. The patient does not want to be here, and was not initially cooperative with his history or physical exam. Eventually, however, the patient relaxed and began talking to me. He states that he is completely uninjured. Here in the ED, the patient is found to be hemodynamically stable, afebrile, saturating 94% on room air. The patient denies recent fever, chills, sore throat, ear pain, nasal or sinus congestion, cough, dyspnea, chest pain, palpitations, nausea, vomiting, constipation, diarrhea, abdominal pain, urinary symptoms, recent weight gain or weight loss, recent bloody bowel movements or black bowel movements, recent joint aches, headaches, or rashes. The patient's PCP is Dr. Rebecca Granados, at the [facility]. - Related Data Allergies Allergy/AdvReac Type Severity Reaction Status Date / Time codeine Allergy Severe Itching Verified 06/05/20 19:00 Home Meds: Home Meds Levothyroxine [Synthroid] 50 mcg PO DAILY 10/10/15 [History] PARoxetine [Paxil] 40 mg PO DAILY 10/10/15 [History] lamoTRIgine [Lamotrigine] 200 mg PO BID 10/10/15 [History] levETIRAcetam [Levetiracetam] 500 mg PO BID 10/10/15 [History] traZODone 100 mg PO BEDTIME 10/10/15 [History] Apixaban [Eliquis] 2.5 mg PO BID 04/23/20 [History] Furosemide [Lasix] 20 mg PO DAILY #7 tab 04/23/20 [Rx] oxyCODONE HCl/Acetaminophen [Percocet 5-325 mg Tablet] 1 each PO Q6HR PRN #15 tablet 04/25/20 [Rx] Past Medical History HEENT History: Reports: Hard of Hearing Cardiovascular History: Reports: Blood Clots/VTE/DVT (RLE) Respiratory History: Reports: PE Musculoskeletal History: Reports: Back Pain, Chronic (DDD), Fracture (skull) Neurological History: Reports: Seizure Psychiatric History: Reports: Bipolar, Depression, PTSD Endocrine/Metabolic History: Reports: Hypothyroidism - Past Surgical History HEENT Surgical History: Reports: Myringotomy w Tube(s) (right only), Tonsillectomy Male Surgical History: Reports: Other (See Below) (Right orchiectomy due to trauma) Musculoskeletal Surgical History: Reports: Shoulder Surgery (right, arthroscopic) Social & Family History - Family History Family Medical History: Noncontributory - Tobacco Use Smoking Status *Q: Current Every Day Smoker Years of Tobacco use: 58 Packs/Tins Daily: 1.5 - Caffeine Use Caffeine Use: Reports: None - Alcohol Use Alcohol Use History: Yes Days Per Week of Alcohol Use: 7 Number of Drinks Per Day: 6 Total Drinks Per Week: 42 - Recreational Drug Use Recreational Drug Use: Yes Drug Use in Last 12 Months: Yes Recreational Drug Type: Reports: Marijuana/Hashish (smokes daily) - Living Situation & Occupation Living situation: Reports: , with Spouse Occupation: Retired Review of Systems - Review of Systems Review Of Systems: Comprehensive ROS is negative, except as noted in HPI. Neurological: Reports: Headache (chronic) ED EXAM, GENERAL - Physical Exam Exam: See Below Exam Limited By: No Limitations General Appearance: Alert, WD/WN, No Apparent Distress Eye Exam: Bilateral Eye: EOMI, Normal Inspection Ears: Normal External Exam, Normal Canal, Hearing Grossly Normal, Normal TMs Nose: Normal Inspection Throat/Mouth: Normal Inspection, Normal Lips, Normal Voice, No Airway Compromise Head: Atraumatic, Normocephalic Neck: Normal Inspection, Full Range of Motion Respiratory/Chest: No Respiratory Distress, Lungs Clear, Normal Breath Sounds, No Accessory Muscle Use Cardiovascular: Normal Peripheral Pulses, Regular Rate, Rhythm, No Edema, No Ga llop, No JVD, No Murmur, No Rub Peripheral Pulses: 3+: Radial (L), Radial (R) GI/Abdominal: Normal Bowel Sounds, Soft, Non-Tender, No Organomegaly, No Distention, No Abnormal Bruit, No Mass (Male) Exam: Deferred Rectal (Males) Exam: Deferred Back Exam: Normal Inspection, Full Range of Motion, NT Extremities: Normal Inspection, Normal Range of Motion, No Pedal Edema, Normal Capillary Refill Neurological: Alert, Oriented, CN II-XII Intact, Normal Cognition, No Motor/Sensory Deficits, Other (Mildly slurred speech) Psychiatric: Normal Affect Skin Exam: Warm, Dry, Intact, Normal Color, No Rash Course - Vital Signs Last Recorded V/S: Last Vital Signs Temp 36.1 C 06/05/20 19:55 Pulse 68 06/05/20 19:55 Resp 16 06/05/20 19:55 BP 99/61 06/05/20 19:55 Pulse Ox 94 L 06/05/20 19:55 - Re-Assessments/Exams Free Text/Narrative Re-Assessment/Exam: 06/05/20 19:10 As above, the patient is brought to the ED by EMS after drinking 5-6 beers at a bar, then falling 3 or 4 times. He does not appear to be injured, however, he is on Eliquis, therefore a trauma alert was called. He appears to be intoxicated, but I have ordered a CT of his head without contrast to make sure that there are no intracranial injuries. 06/05/20 20:17 CT of the head without contrast is read by [facility] as "No acute intracranial process." I am notified that the patient's is on her way to the ED to pick the patient up. I will discharge him. Departure - Departure Time of Disposition: 20:17 Disposition: Home, Self-Care 01 Condition: Good Clinical Impression: Alcohol intoxication, Fall from ground level - Discharge Information *PRESCRIPTION DRUG MONITORING PROGRAM REVIEWED*: Not Applicable *COPY OF PRESCRIPTION DRUG MONITORING REPORT IN PATIENT ESTELITA: Not Applicable Instructions: Fall Prevention in the Home, Adult, [id number], Alcohol Intoxication, [id number] Referrals: Brianna Granados MD [Primary Care Provider] - Forms: ED Department Discharge Additional Instructions: You were seen in the emergency room after drinking several beers at a bar, then falling several times. Work-up in the ER included a CT scan of your head, which returned unremarkable. We strongly recommend that you make an attempt to curb the amount of alcohol that you drink. If you need help to decrease the amount of alcohol that you drink, we recommend that you go to [facility]: [address] [place] [phone] If any other problems, please do not hesitate to return to the ER. Sepsis Event Note (ED) - Evaluation Sepsis Screening Result: No Definite Risk
[2020-06-05 19:56] VITALS: BP 99/61; PULSE 68
--- NOTE | 2020-06-08 06:48 | CT ---
Head CT Technique: Multiple axial sections through the brain were obtained. Intravenous contrast was not utilized. Comparison: Prior head CT study of 01/14/20. 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 Ventricles along with basal cisterns and sulci over the convexities are mildly prominent. Minimal areas of diminished density are noted within the periventricular white matter which is compatible with small vessel ischemic demyelination change. No other abnormal parenchymal densities are seen. No evidence of intracranial hemorrhage. No midline shift or mass-effect is seen. Bone window settings were reviewed. No acute calvarial abnormality is seen. Prior right mastoid sinus surgery is noted. Left mastoid sinus shows nothing acute. Paranasal sinuses show nothing acute. Impression: 1. 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 2. Senescent change as noted above. 3. Nothing acute is definitely appreciated. Diagnostic code #2 This report was dictated in MDT I agree with preliminary report from [facility], finalized on , 8:47 PM Central Daylight Time
== END 2020-06-05 20:50 | disposition home or self-care (01) ==
LOC: JD.ED 18:51
DX: F10.129 Alcohol abuse with intoxication, unspecified (principal); R56.9 Unspecified convulsions; F31.9 Bipolar disorder, unspecified; E03.9 Hypothyroidism, unspecified; F17.210 Nicotine dependence, cigarettes, uncomplicated; Z86.711 Personal history of pulmonary embolism; Z88.5 Allergy status to narcotic agent; Z79.01 Long term (current) use of anticoagulants; Z79.899 Other long term (current) drug therapy; W18.30XA Fall on same level, unspecified, initial encounter; Y92.511 Restaurant or cafe as the place of occurrence of the external cause
CPT/HCPCS: 70450; 70450-26; 99284-25

== ENCOUNTER 2021-03-16 13:16 | Emergency (ER) | payer OTHER ==
[2021-03-16 13:33] VITALS: BP 127/75; PULSE 67
[2021-03-16] MEDS ORDERED: Sodium Chloride 0.9% 10 ML Syringe FLUSH PRN ×2 (13:45→14:34)
--- NOTE | 2021-03-16 14:01 | EDM.PDOC ---
ED HPI GENERAL MEDICAL PROBLEM - General Chief Complaint: Respiratory Problem Stated Complaint[place] [facility] [place] Seen by Provider: 03/16/21 13:29 Source of Information: Reports: Patient History Limitations: Reports: No Limitations - History of Present Illness INITIAL COMMENTS - FREE TEXT/NARRATIVE: 70-year-old male presents the emergency department today with complaints of shortness of breath. He states that over the past couple of months he has become progressively more short of breath. He states he lives in a two-story home and he no longer goes back upstairs during the day because it causes him to be so winded. He states he called the [facility] today and was told to come to the emergency department. He does admit to being a 1 pack a day smoker for the past 50 years. He denies any heart failure, or history of [place]. He does admit to having a history of pulmonary embolus in the summer 2019 however he does not know the exact date. He denies any fever, chills, nausea, vomiting, diarrhea, or cough. Just states progressively worsening shortness of breath. He is not orthopneic. He does not have a CPAP. He has not had any chest pain, diaphoresis or dizziness associated with the shortness of breath. The [facility] calls the emergency department and states that in February 2020, the patient had a PE and had been prescribed Eliquis. He did follow-up with Dr. Randle and was continued on his Eliquis, however the patient ran out of Eliquis December 21 and did not renew his prescription. They sent him here with concerns that he may have a PE. - Related Data Allergies Allergy/AdvReac Type Severity Reaction Status Date / Time codeine Allergy Severe Itching Verified 06/05/20 19:00 Home Meds: Home Meds Levothyroxine [Synthroid] 50 mcg PO DAILY 10/10/15 [History] PARoxetine [Paxil] 40 mg PO DAILY 10/10/15 [History] lamoTRIgine [Lamotrigine] 200 mg PO BID 10/10/15 [History] levETIRAcetam [Levetiracetam] 500 mg PO BID 10/10/15 [History] traZODone 100 mg PO BEDTIME 10/10/15 [History] Apixaban [Eliquis] 2.5 mg PO BID 06/04/20 [History] Furosemide [Lasix] 20 mg PO DAILY #7 tab 04/23/20 [Rx] oxyCODONE HCl/Acetaminophen [Percocet 5-325 mg Tablet] 1 each PO Q6HR PRN #15 tablet 04/25/20 [Rx] Past Medical History HEENT History: Reports: Hard of Hearing Cardiovascular History: Reports: Blood Clots/VTE/DVT Respiratory History: Reports: PE Gastrointestinal History: Reports: None Genitourinary History: Reports: None Musculoskeletal History: Reports: Back Pain, Chronic, Fracture Other Musculoskeletal History: herniated disc Neurological History: Reports: Seizure Psychiatric History: Reports: Bipolar, Depression, PTSD Endocrine/Metabolic History: Reports: Hypothyroidism Hematologic History: Reports: None Immunologic History: Reports: None Oncologic (Cancer) History: Reports: None Dermatologic History: Reports: None - Infectious Disease History Infectious Disease History: Reports: Chicken Pox, Measles, Mumps - Past Surgical History HEENT Surgical History: Reports: Myringotomy w Tube(s), Tonsillectomy Other HEENT Surgeries/Procedures: ear surgeries Musculoskeletal Surgical History: Reports: Shoulder Surgery Social & Family History - Family History Family Medical History: No Pertinent Family History - Tobacco Use Tobacco Use Status *Q: Current Every Day Tobacco User Years of Tobacco use: 60 Packs/Tins Daily: 1 - Caffeine Use Caffeine Use: Reports: Coffee - Recreational Drug Use Recreational Drug Use: No - Living Situation & Occupation Living situation: Reports: , with Spouse Occupation: Retired ED ROS GENERAL - Review of Systems Review Of Systems: Comprehensive ROS is negative, except as noted in HPI. ED EXAM, GENERAL - Physical Exam Exam: See Below Exam Limited By: No Limitations General Appearance: Alert, WD/WN, No Apparent Distress Ears: Normal External Exam, Hearing Grossly Normal Nose: Normal Inspection Throat/Mouth: Normal Inspection, Normal Lips, Normal Voice, No Airway Compromise Head: Atraumatic, Normocephalic Neck: Normal Inspection, Supple, Non-Tender, Full Range of Motion Respiratory/Chest: No Respiratory Distress, Lungs Clear, Normal Breath Sounds, No Accessory Muscle Use, Chest Non-Tender Cardiovascular: Normal Peripheral Pulses, Regular Rate, Rhythm, No Edema, Systolic Murmur (Grade 2) Peripheral Pulses: 2+: Radial (L), Radial (R) GI/Abdominal: Normal Bowel Sounds, Soft, Non-Tender, No Distention (Male) Exam: Deferred Rectal (Males) Exam: Deferred Back Exam: Normal Inspection, Full Range of Motion Extremities: Normal Inspection, Normal Range of Motion, Non-Tender, No Pedal Edema, Normal Capillary Refill Neurological: Alert, Oriented, Normal Cognition Psychiatric: Normal Affect, Normal Mood Skin Exam: Warm, Dry, Intact, Normal Color, No Rash Lymphatic: No Adenopathy #1 Interpretation EKG Date: 03/16/21 Time: 13:58 Rhythm: NSR Rate (Beats/Min): 66 [place]: Normal P-Wave: Present QRS: Normal ST-T: Normal QT: Normal EKG Interpretation Comments: Per Dr. Herndon interpretation: sinus rhythm, right bundle branch block, no ischemia Course - Vital Signs Text/Narrative:: 70-year-old male with a 2-month history of progressively worse shortness of breath. History of pulmonary embolus diagnosed in February 2020. Patient had been taking Eliquis up until December 21 when [facility] I have ordered labs and a chest x-ray on this patient. Will likely be sent for CTA once I have kidney function back. Last Recorded V/S: Last Vital Signs Temp 98.2 F 03/16/21 13:30 Pulse 67 03/16/21 13:30 Resp 12 03/16/21 13:30 BP 127/75 03/16/21 13:30 Pulse Ox 100 03/16/21 13:30 - Orders/Labs/Meds Orders: Active Orders 24 hr Category Date Time Status EKG Documentation Completion [RC] STAT Care 03/16/21 13:44 Active Sodium Chloride 0.9% [Normal Saline] 100 ml Med 03/16/21 14:45 Active IV ASDIRECTED Sodium Chloride 0.9% [Saline Flush] Med 03/16/21 13:45 Active 10 ml FLUSH ASDIRECTED PRN Sodium Chloride 0.9% [Saline Flush] Med 03/16/21 14:34 Active 10 ml FLUSH ONETIME PRN Saline Lock Insert [OM.PC] Stat Oth 03/16/21 13:45 Ordered Medication Orders Sodium Chloride (Normal Saline) 100 mls @ 75 mls/hr IV ASDIRECTED ANNA Last Admin: 03/16/21 14:37 Dose: 75 mls/hr Documented by: TIMOTHY Sodium Chloride (Sodium Chloride 0.9% 10 Ml Syringe) 10 ml FLUSH ASDIRECTED PRN PRN Reason: Keep Vein Open Last Admin: 03/16/21 13:55 Dose: 10 ml Documented by: LAUREN Sodium Chloride (Sodium Chloride 0.9% 10 Ml Syringe) 10 ml FLUSH ONETIME PRN PRN Reason: IV FLUSH Last Admin: 03/16/21 14:37 Dose: 10 ml Documented by: TIMOTHY Labs: Laboratory Tests 03/16/21 03/16/21 03/16/21 Range/Units 13:55 13:55 13:55 WBC 5.07 (4.23-9.07) K/mm3 RBC 3.35 L (4.63-6.08) M/mm3 Hgb 10.1 L D (13.7-17.5) gm/dl Hct 31.4 L (40.1-51.0) % MCV 93.7 H D (79.0-92.2) fl MCH 30.1 (25.7-32.2) pg MCHC 32.2 (32.2-35.5) g/dl RDW Std Deviation 45.1 H (35.1-43.9) fL Plt Count 394 H D (163-337) K/mm3 MPV 8.5 L (9.4-12.3) fl Neut % (Auto) 65.4 (34.0-67.9) % Lymph % (Auto) 17.2 L (21.8-53.1) % [place] % (Auto) 14.8 H (5.3-12.2) % Eos % (Auto) 1.8 (0.8-7.0) Baso % (Auto) 0.4 (0.1-1.2) % Neut # (Auto) 3.32 (1.78-5.38) K/mm3 Lymph # (Auto) 0.87 L (1.32-3.57) K/mm3 [place] # (Auto) 0.75 (0.30-0.82) K/mm3 Eos # (Auto) 0.09 (0.04-0.54) K/mm3 Baso # (Auto) 0.02 (0.01-0.08) K/mm3 D-Dimer, Quantitative 4.11 H (0.19-0.50) mg/L Sodium 132 L (136-145) mEq/L Potassium 3.9 (3.5-5.1) mEq/L Chloride 96 L (98-107) mEq/L Carbon Dioxide 28 (21-32) mEq/L Anion Gap 11.9 (5-15) BUN 8 (7-18) mg/dL Creatinine 0.8 (0.7-1.3) mg/dL Est Cr Clr Drug Dosing 81.58 mL/min Estimated GFR (MDRD) > 60 (>60) mL/min BUN/Creatinine Ratio 10.0 L (14-18) Glucose 97 (80-115) mg/dL Calcium 9.0 (8.5-10.1) mg/dL Magnesium 2.3 (1.8-2.4) mg/dl Total Bilirubin 0.4 (0.2-1.0) mg/dL AST 16 (15-37) U/L ALT 18 (16-63) U/L Alkaline Phosphatase 74 (46-116) U/L Troponin I < 0.017 (0.00-0.056) ng/mL C-Reactive Protein 7.0 H* (<1.0) mg/dL Total Protein 7.3 (6.4-8.2) g/dl Albumin 2.6 L (3.4-5.0) g/dl Globulin 4.7 gm/dL Albumin/Globulin Ratio 0.6 L (1-2) Meds: Medications Generic Name Dose Route Start Last Admin Trade Name Freq PRN Reason Stop Dose Admin Sodium Chloride 100 mls @ 75 mls/hr 03/16/21 14:45 03/16/21 14:37 Normal Saline IV 75 mls/hr ASDIRECTED ANNA Administration Sodium Chloride 10 ml 03/16/21 13:45 03/16/21 13:55 Sodium Chloride 0.9% 10 Ml Syringe FLUSH 10 ml ASDIRECTED PRN Administration Keep Vein Open Sodium Chloride 10 ml 03/16/21 14:34 03/16/21 14:37 Sodium Chloride 0.9% 10 Ml Syringe FLUSH 10 ml ONETIME PRN Administration IV FLUSH Discontinued Medications Generic Name Dose Route Start Last Admin Trade Name Freq PRN Reason Stop Dose Admin Iopamidol 100 ml 03/16/21 14:34 03/16/21 14:37 Iopamidol 755 Mg/Ml 100 Ml Bottle IVPUSH 03/16/21 14:35 100 ml ONETIME ONE Administration - Re-Assessments/Exams Free Text/Narrative Re-Assessment/Exam: 03/16/21 14:31 Hematology reveals a WBC of 5.07, hemoglobin 10.1, hematocrit 31.4, platelet count 394, coagulation reveals a D-dimer of 4.11. I have ordered a CTA on this patient. 03/16/21 14:37 Chemistry reveals a sodium of 132, potassium 3.9, chloride 96, carbon dioxide 28, anion gap 11.9, BUN 8, creatinine 0.8, glucose 97, magnesium 2.3, troponin less than 0.017, C-reactive protein 7.0 03/16/21 15:08 Radiologist impression PA and lateral views of the chest: 1. Small to moderate- sized right-sided pleural effusion which is an interval change from previous exams. 2. Decreased left-sided pleural effusion. There is pleural thickening within the left lateral lung base most likely due to a small amount of loculated fluid. 3. Slight linear densities are noted within the left lower chest most likely due to atelectasis. 4. Cardiomegaly 03/16/21 15:[address] of the chest: 1. No findings of pulmonary embolism. 2. Small to moderate-sized right-sided pleural effusion with adjacent atelectasis. 3. Minimal left-sided pleural effusion with adjacent pleural thickening. 4. Areas of scarring believed to be present adjacent to the pleural change within the left side. 03/16/21 15:[address] Arredondo, the surgeon on-call, and he states at this time he does not feel that the patient would require a thoracentesis as his O2 saturations are 100%. He states that it would be appropriate for the patient to follow-up with his primary care provider regarding the pleural effusions. Patient will be discharged home. Departure - Departure Time of Disposition: 15:29 Disposition: Home, Self-Care 01 Condition: Good Clinical Impression: Pleural effusion - Discharge Information Instructions: Pleural Effusion Referrals: Brianna Granados MD [Primary Care Provider] - Forms: ED Department Discharge Additional Instructions: You were seen in the emergency department today with complaints of shortness of breath that has progressed over the last 2 months. Labs were completed as well as chest x-ray and CT scan of your chest. Your lab work was essentially unremarkable. You do not have a blood clot in your lungs. Your chest x-ray and CT scan both indicated that you have fluid on both of your lungs however your oxygen levels were 100% while in the emergency department. I spoke with the surgeon on-call, Dr. Arredondo, and he does not feel that there is any surgical intervention needed. You will need to schedule an appointment for later this week at the [facility] so that they can follow up regarding this diagnosis. Should your condition worsen or change, do not hesitate returning to the emergency department. Sepsis Event Note (ED) - Evaluation Sepsis Screening Result: No Definite Risk - Focused Exam Vital Signs: Vital Signs Temp Pulse Resp BP Pulse Ox 03/16/21 13:30 98.2 F 67 12 127/75 100 - My Orders Last 24 Hours: My Active Orders 03/16/21 13:44 EKG Documentation Completion [RC] STAT 03/16/21 13:45 Sodium Chloride 0.9% [Saline Flush] 10 ml FLUSH ASDIRECTED PRN Saline Lock Insert [OM.PC] Stat 03/16/21 14:34 Sodium Chloride 0.9% [Saline Flush] 10 ml FLUSH ONETIME PRN 03/16/21 14:45 Sodium Chloride 0.9% [Normal Saline] 100 ml IV ASDIRECTED - Assessment/Plan Last 24 Hours: My Active Orders 03/16/21 13:44 EKG Documentation Completion [RC] STAT 03/16/21 13:45 Sodium Chloride 0.9% [Saline Flush] 10 ml FLUSH ASDIRECTED PRN Saline Lock Insert [OM.PC] Stat 03/16/21 14:34 Sodium Chloride 0.9% [Saline Flush] 10 ml FLUSH ONETIME PRN 03/16/21 14:45 Sodium Chloride 0.9% [Normal Saline] 100 ml IV ASDIRECTED
--- NOTE | 2021-03-16 14:28 | CR ---
Chest: PA and lateral views of the chest were obtained. Comparison: Prior chest x-ray of 03/19/[address] study of 04/23/20. Small pleural thickening is seen within the lower lateral chest most likely due to pleural effusion which has decreased from prior study and is loculated. Slight linear densities within the left lower chest most likely due to atelectasis. Small to moderate sized right-sided pleural effusion which is an interval change. Upper lungs are clear. Heart is mildly enlarged. Scoliosis and degenerative change is noted within the spine. Impression: 1. Small to moderate size right-sided pleural effusion which is an interval change from previous exams. 2. Decreased left-sided pleural effusion. There is pleural thickening within the left lateral lung base most likely due to a small amount of loculated fluid. 3. Slight linear densities are noted within the left lower chest most likely due to atelectasis. 4. Cardiomegaly. Diagnostic code #3
[2021-03-16] MEDS ORDERED: Iopamidol 755 Mg/ML 100 ML Bottle IVPUSH ONE (14:34)
[2021-03-16] MEDS ORDERED: Sodium Chloride 0.9% 100 ML IV SCH (14:45)
--- NOTE | 2021-03-16 15:09 | CT ---
CT chest Technique: Multiple axial sections through the chest were obtained. Study was performed as pulmonary angiogram. Intravenous contrast was therefore utilized. Comparison: Prior CT angiogram chest performed on 04/23/20. Findings: Pulmonary arteries are well opacified. No filling defects are seen to indicate pulmonary embolism. Thoracic aorta shows no aneurysm. Mediastinum and hilar regions show no adenopathy or mass. Minimal left-sided pleural effusion is seen next to slight areas of parenchymal thickening. Slight scarring is believed to be present adjacent to the slight pleural change. Small to moderate size right-sided pleural effusion is seen. Mild atelectasis is seen within the right lung base adjacent to the pleural effusion. Upper lungs are clear with no acute parenchymal change. Bone window settings were reviewed which show scattered degenerative change within the spine. No acute osseous abnormality is appreciated. Impression: 1. No findings of pulmonary embolism. 2. Small to moderate size right-sided pleural effusion with adjacent atelectasis. 3. Minimal left-sided pleural effusion with adjacent pleural thickening. 4. Areas of scarring believed to be present adjacent to the pleural change within the left side. Diagnostic code #3
== END 2021-03-16 15:50 | disposition home or self-care (01) ==
LOC: JD.ED 13:16
DX: J90 Pleural effusion, not elsewhere classified (principal); R56.9 Unspecified convulsions; E03.9 Hypothyroidism, unspecified; Z88.5 Allergy status to narcotic agent; Z86.711 Personal history of pulmonary embolism; Z79.01 Long term (current) use of anticoagulants; Z79.899 Other long term (current) drug therapy; Z72.0 Tobacco use
CPT/HCPCS: 36415; 71046; 71275; 80053; 83735; 84484; 85025; 85379; 86140; 93005; 99285; Q9967; 93010; 99284

== ENCOUNTER 2021-11-24 19:34 | Emergency (ER) | payer OTHER ==
[2021-11-24] MEDS ORDERED: EPINEPHrine 1:10,000 1 MG/10 ML Syringe ONE ×3 (19:38→19:57)
[2021-11-24] MEDS ORDERED: Sodium Bicarbonate 8.4% 50 MEQ/50 ML Syringe ONE (19:52)
[2021-11-24] MEDS: Norepinephrine 4 MG in Dextrose 5% in Water 246 ML IV SCH ×4 (19:59→23:45)
[2021-11-24] MEDS ORDERED: EPINEPHrine 4 MG in Dextrose 5% in Water 250 ML IV ONE ×2 (20:02)
[2021-11-24] MEDS: fentaNYL 2,500 MCG in Sodium Chloride 0.9% 200 ML IV SCH (20:25)
[2021-11-24] MEDS ORDERED: Lactated Ringers 1,000 ML IV SCH (21:00)
[2021-11-24 21:32] LABS: CORONAVIRUS COVID-19 NAA POSITIVE (NEGATIVE)
[2021-11-24] MEDS ORDERED: levETIRAcetam 500 MG in Sodium Chloride 0.9% 100 ML IV ONE (22:41)
[2021-11-25] MEDS: fentaNYL 2,500 MCG in Sodium Chloride 0.9% 200 ML IV SCH ×2 (00:05→22:05)
[2021-11-25] MEDS: Norepinephrine 4 MG in Dextrose 5% in Water 246 ML IV SCH ×4 (05:52→14:44)
[2021-11-25] MEDS: levETIRAcetam 500 MG in Sodium Chloride 0.9% 100 ML IV SCH ×2 (08:55→20:27)
[2021-11-25] MEDS ORDERED: Aspirin 300 MG Supp RECTAL ONE (14:34)
[2021-11-25 14:46] VITALS: PULSE 69
[2021-11-25] MEDS ORDERED: Dexamethasone 4 MG/ML 5 ML MDV IV ONE (20:45)
[2021-11-26 00:30] VITALS: BP 143/64
== END 2021-11-25 23:45 ==
LOC: JD.ED 19:34
DX: I46.9 Cardiac arrest, cause unspecified (principal); E03.9 Hypothyroidism, unspecified; Z88.5 Allergy status to narcotic agent; Z88.8 Allergy status to other drugs, medicaments and biological substances; Z79.899 Other long term (current) drug therapy; Z20.822 Contact with and (suspected) exposure to COVID-19
CPT/HCPCS: 0240U; 31500; 36415; 36600; 51702; 70450; 71250; 80048; 80053; 80306; 80307; 81001; 82150; 82803; 82977; 83605; 83735; 84484; 85007; 85025; 85027; 85610; 85730; 86850; 86900; 86901; 87086; 92950; 93005; 96365; 96366; 96367; 96368; 99291; A9270; J0171; J0282; J1953; J2250; J3010; J7050; J7060; J7120; 93010; 99285